=== PATIENT | male | born 1960 | race African-American/Black ===

== ENCOUNTER 2018-03-21 23:58 | Inpatient (IN) | payer BC ==
[~2018-03-21] VITALS: Ht 180.3 cm; Wt 117.7 kg
[2018-03-22 02:10] VITALS: BP 146/84
[2018-03-22] MEDS ORDERED: HYDROCHLOROTH12.5 M2 ORAL (03:21)
[2018-03-22 04:00] VITALS: BP 134/74
[2018-03-22] MEDS ORDERED: Miralax 17gm pkt ORAL PRN (07:45)
[2018-03-22] MEDS ORDERED: Acetaminophen 650 MG SUPP RECTAL PRN ×2 (07:45)
[2018-03-22 08:00] VITALS: BP 137/91
[2018-03-22] MEDS: Heparin 5000 units/ml inj SUBQ SCH ×2 (08:26→20:30)
[2018-03-22] MEDS ORDERED: D5 1/2NS w/KCl 20mEq 1,000 ML IV SCH (09:00)
[2018-03-22] MEDS ORDERED: Docusate 100mg cap ORAL SCH (09:00)
[2018-03-22 10:15] LABS: ANION GAP 15 mmol/L (5-15); BLOOD UREA NITROGEN 58 mg/dL (7-18); CALCIUM 8.2 MG/DL (8.5-10.1); CARBON DIOXIDE 20 MMOL/L (21-32); CHLORIDE 93 MMOL/L (98-107); CREATININE 6.8 MG/DL (0.55-1.30); POTASSIUM 2.8 MMOL/L (3.5-5.1); SODIUM 128 MMOL/L (136-145)
[2018-03-22 10:32] LABS: PHOSPHORUS 3.6 MG/DL (2.5-4.9)
--- NOTE | 2018-03-22 11:49 | Consultation ---
Consult Note Consult Note 57 cc Weakness and decrease Urination Has not seen MD for years Known HTN , never care to treat. Denies DM no allergy no Surgery no OTC meds interviewed examined lab reviewed Assessment/Plan Acute Renal Failure DM as Hgb A1c Elevated Obesity HTN abnormal LFTs ? Fatty infilt Brady- check residual Kidney ROWAN 2D Echo Urine studies Hydrate Keep BP and BS in check starlix Flomax Hepatitis panel BRENNAN ASENCIO Mar 22, 2018 11:48
--- NOTE | 2018-03-22 11:56 | Consultation ---
History of Present Illness General Date patient seen: Mar 22, 2018 Reason for Consultation: inpatient management Present Illness HPI 57 years old male with past medical history significant for hypertension , hyperlipidemia and obesity ,was transferred initially to [facility] complaining of fatigue and anorexia and found to be in acute renal failure. Pt is transferred to [facility] for further care. Allergies: Coded Allergies: No Known Allergies (Unverified , 03/22/18) Medication History Scheduled Amlodipine Besylate (Norvasc), 10 MG ORAL DAILY, (Reported) Hydrochlorothiazide* (Hydrochlorothiazide*), 12.5 MG ORAL DAILY, (Reported) Levofloxacin* (Levaquin*), 750 MG ORAL q48, (Reported) Nateglinide (Starlix), 120 MG ORAL THREE TIMES A DAY, (Reported) Tamsulosin Hcl (Tamsulosin Hcl*), 0.4 MG ORAL BEDTIME, (Reported) Patient History Healthcare decision maker Resuscitation status Full Code Advanced Directive on File Past Medical/Surgical History Past Medical/Surgical History: (1) Diabetes (2) Cardiomyopathy due to hypertension (3) Hypertension Review of Systems All Other Systems: negative except mentioned in HPI Physical Exam General Appearance: WD/WN, no apparent distress Lines, tubes and drains: peripheral HEENT: normocephalic, atraumatic Neck: non-tender, supple Respiratory/Chest: chest wall non-tender, lungs clear Breasts: no masses Cardiovascular/Chest: normal peripheral pulses Abdomen: normal bowel sounds Genitourinary/Rectal: normal genital exam Extremities: normal range of motion Last 24 Hour Vital Signs Date Time Temp Pulse Resp B/P (MAP) Pulse Ox O2 Delivery O2 Flow Rate FiO2 03/22/18 08:23 79 134/74 03/22/18 08:00 98.1 86 20 137/91 96 Room Air 98.1 03/22/18 04:00 99.3 79 20 134/74 96 Room Air 99.3 03/22/18 02:10 99.3 91 18 146/84 97 Room Air 99.3 Intake and Output 03/21/18 03/22/18 19:00 07:00 Intake Total 200 ml Balance 200 ml Intake Oral 200 ml # Bowel Movements 6 Laboratory Tests Test 03/22/18 09:26 Sodium Level 128 MMOL/L (136-145) L Potassium Level 2.8 MMOL/L (3.5-5.1) L Chloride Level 93 MMOL/L (98-107) L Carbon Dioxide Level 20 MMOL/L (21-32) L Anion Gap 15 mmol/L (5-15) Blood Urea Nitrogen 58 mg/dL (7-18) H Creatinine 6.8 MG/DL (0.55-1.30) H Estimat Glomerular Filtration Rate 10.2 mL/min (>60) Glucose Level 169 MG/DL (74-106) H Hemoglobin A1c 7.4 % (4.3-6.0) H Uric Acid 11.8 MG/DL (2.6-7.2) H Calcium Level 8.2 MG/DL (8.5-10.1) L Phosphorus Level 3.6 MG/DL (2.5-4.9) Magnesium Level 2.6 MG/DL (1.8-2.4) H C-Reactive Protein, Quantitative Pending Height (Feet): 5 Height (Inches): 11.00 Weight (Pounds): 259 Medications Current Medications Medications (Trade) Dose Ordered Sig/Swetha Route PRN Reason Start Time Stop Time Status Last Admin Dose Admin Acetaminophen (Tylenol) 650 mg Q4H PRN ORAL Mild Pain (Pain Scale 1-3) 03/22/18 07:45 04/21/18 07:44 Amlodipine Besylate (Norvasc) 5 mg DAILY ORAL 03/23/18 09:00 04/21/18 08:59 Clonidine HCl (Catapres Tab) 0.1 mg Q4H PRN ORAL SBP > 165 03/22/18 15:45 04/21/18 07:44 Dextrose (Dextrose 50%) 25 ml STAT PRN IV Hypoglycemia 03/22/18 07:45 04/21/18 07:44 Docusate Sodium (Colace) 100 mg TID ORAL 03/22/18 13:00 04/21/18 08:59 Heparin Sodium (Porcine) (Heparin 5000 units/ml) 5,000 units EVERY 12 HOURS SUBQ 03/22/18 09:00 04/21/18 08:59 03/22/18 08:26 Ondansetron HCl (Zofran) 4 mg Q6H PRN IVP Nausea & Vomiting 03/22/18 07:45 04/21/18 07:44 Polyethylene Glycol (Miralax) 17 gm HSPRN PRN ORAL Constipation 03/22/18 07:45 04/21/18 07:44 Potassium Chloride (K-Dur) 40 meq ONCE ORAL 03/22/18 11:00 03/22/18 12:00 Sodium Chloride 1,000 ml @ 75 mls/hr [id number] IV 03/22/18 11:45 04/21/18 11:44 Tamsulosin HCl (Flomax) 0.4 mg BEDTIME ORAL 03/22/18 21:00 04/21/18 20:59 Assessment/Plan Problem List: (1) Acute renal failure (ARF) ICD Codes: N17.9 - Acute kidney failure, unspecified SNOMED: 06932624 (2) Cardiomyopathy due to hypertension ICD Codes: I11.9 - Hypertensive heart disease without heart failure; I43 - Cardiomyopathy in diseases classified elsewhere SNOMED: 890696907821136 (3) Obesity (BMI 30-39.9) ICD Codes: E66.9 - Obesity, unspecified SNOMED: 515424390, 912332490 (4) Diabetes type 2, uncontrolled ICD Codes: E11.65 - Type 2 diabetes mellitus with hyperglycemia SNOMED: 99640999, 405672471 (5) Hypertension ICD Codes: I10 - Essential (primary) hypertension SNOMED: 22954868 Assessment/Plan iv fluids renal US urine electrolytes daily blood electrolytes echocardiogram monitor BP nutrition evaluation symptomatic treatment. dvt prophylaxis. Ethan Barnett MD Mar 22, 2018 11:56
[2018-03-22 12:00] VITALS: BP 156/88
[2018-03-22] MEDS ORDERED: NS w/KCl 40mEq 1,000 ML IV SCH (12:00)
[2018-03-22] MEDS: Docusate 100mg cap ORAL SCH ×2 (12:27→17:10)
[2018-03-22 12:47] LABS: BASOPHILS % (AUTO) 0.3 % (0.0-2.0); EOSINOPHILS % (AUTO) 0.6 % (0.0-3.0); HEMOGLOBIN 12.6 G/DL (14.2-18.0); LYMPHOCYTES % (AUTO) 10.5 % (20.0-45.0); MEAN CORPUSCULAR VOLUME 89 FL (80-99); MONOCYTES % (AUTO) 5.2 % (1.0-10.0); NEUTROPHILS % (AUTO) 83.4 % (45.0-75.0); PLATELET COUNT 229 K/UL (150-450); RED BLOOD COUNT 4.17 M/UL (4.70-6.10); WHITE BLOOD COUNT 13.6 K/UL (4.8-10.8)
[2018-03-22 13:21] LABS: ALANINE AMINOTRANSFERASE 149 U/L (12-78); ALBUMIN 2.2 G/DL (3.4-5.0); ALBUMIN/GLOBULIN RATIO 0.4 (1.0-2.7); ALKALINE PHOSPHATASE 119 U/L (46-116); ANION GAP 13 mmol/L (5-15); ASPARTATE AMINO TRANSFERASE 88 U/L (15-37); BILIRUBIN,TOTAL 0.4 MG/DL (0.2-1.0); BLOOD UREA NITROGEN 61 mg/dL (7-18); CARBON DIOXIDE 21 MMOL/L (21-32); CHLORIDE 93 MMOL/L (98-107); CREATINE KINASE 606 U/L (26-308); POTASSIUM 2.8 MMOL/L (3.5-5.1); SODIUM 127 MMOL/L (136-145)
--- NOTE | 2018-03-22 13:28 | History & Physical ---
History and Physical History & Physicial Dictated for Int Med-Dr Orozco no. [id number]. Yunior Zayas MD Mar 22, 2018 13:28
[2018-03-22 13:58] LABS: APPEARANCE,URINE SLIGHTLY CLOUDY; BILIRUBIN, URINE NEGATIVE (NEGATIVE); GLUCOSE, URINE (UA) 1+ (NEGATIVE); KETONES,URINE NEGATIVE (NEGATIVE); LEUKOCYTE ESTERASE ,URINE 1+ (NEGATIVE); NITRITE,URINE NEGATIVE (NEGATIVE); PH,URINE 5 (4.5-8.0); PROTEIN,URINE 4+ (NEGATIVE); UROBILINOGEN,URINE NORMAL MG/DL (0.0-1.0)
[2018-03-22 14:07] LABS: COLOR,URINE YELLOW
[2018-03-22 15:53] VITALS: BP 146/92
[2018-03-22] MEDS: Nateglinide 60mg tab ORAL SCH (17:10)
--- NOTE | 2018-03-22 17:30 | History and Physical Report ---
DATE OF ADMISSION: 03/22/2018 CHIEF COMPLAINT: The patient is a 57-year-old male, presents with a chief complaint of renal failure. HISTORY OF PRESENT ILLNESS: The patient has a history of hypertension and hypercholesterolemia. The patient himself is somewhat confused. Much of the history and physical was obtained from the patient's partner who is at the bedside. According the patient's partner, the patient began to have increasing fatigue over the last week. The patient also has not been able to eat. The patient's partner states the patient did not taste good to him. The patient initially had increased frequency of urination, however, has not produce urine the last couple of days. The patient presented to urgent care a couple of days ago. The patient was told he had abnormal labs. The patient was told to go to the emergency room. The patient presented initially to [facility] emergency room. The patient was found to be in acute renal failure. The patient is transferred to [facility] for insurance purposes. The patient is admitted with acute renal failure and uncontrolled hypertension. REVIEW OF SYSTEMS: CONSTITUTIONAL: The patient denies weight loss weight gain. The patient complains of subjective fevers and chills. HEENT: The patient denies ear or throat pain. The patient denies headache. CARDIOVASCULAR: The patient denies palpitations or chest pain. CHEST: The patient denies wheeze or shortness of breath. ABDOMINAL: The patient denies nausea, vomiting, diarrhea, or constipation. GENITOURINARY: The patient complains of increased frequency of urination as above. The patient also complains of decreased urination as above. The patient denies dysuria. NEUROMUSCULAR: The patient complains of generalized weakness. The patient denies seizures. PAST MEDICAL HISTORY: Significant for, 1. Hypertension. 2. Hypercholesterolemia. PAST SURGICAL HISTORY: The patient denies. CURRENT MEDICATIONS: The patient denies medications in the last 3 years. ALLERGIES: No known drug allergies. SOCIAL HISTORY: The patient has a long-term partner who is at the bedside. The patient admits to "heavy" alcohol use. The patient denies tobacco use. 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 PHYSICAL EXAMINATION: VITAL SIGNS: Temperature 98.1, respirations 18, pulse 91 blood pressure 146/84. GENERAL: The patient is a well-developed, well-nourished, male, in no apparent distress. HEENT: Pupils are equal and responsive to light and accommodation. Extraocular movements are intact. NECK: Supple without lymphadenopathy. CHEST: Lungs are clear to auscultation bilaterally without wheezes or rales. CARDIOVASCULAR: Regular rhythm rate. S1 and S2 are normal without murmurs, rubs, or gallops. ABDOMEN: Soft, nontender, nondistended. Positive bowel sounds. No evidence of hepatosplenomegaly. Currently, no rebound or guarding noted. EXTREMITIES: Negative for clubbing, cyanosis, or edema. RECTAL/GENITAL: Refused. NEUROLOGIC: Cranial nerves II through XII are grossly intact without focal deficits. Motor strength is 5/5 bilaterally. Deep tendon reflexes are 2+ plantar. LABORATORY STUDIES: From [place], WBC 16.5 hemoglobin 12.8, hematocrit 37.0, platelets 189,000. Sodium 129, potassium 2.9, chloride 92, CO2 23, BUN 43, creatinine 5.3, glucose 146. AST elevated at 118, ALT elevated at 144 alkaline phosphatase is normal at 114. ASSESSMENT: This is a 57-year-old male. 1. Fatigue. 2. Anorexia. 3. Acute renal failure. 4. Uncontrolled hypertension. 5. Hypercholesterolemia. TREATMENT: 1. Acute renal failure. A Nephrology consultation has been obtained with Dr. Zaragoza. The patient is currently receiving intravenous fluids. The differential includes dehydration versus acute renal failure secondary to uncontrolled hypertension. We will follow recommendations of Nephrology. 2. Fatigue/anorexia is probably secondary to acute renal failure. 3. Uncontrolled hypertension. The patient has been started empirically on p.r.n. clonidine. The patient also has been started on amlodipine. A Cardiology consultation has been obtained with Dr. Singer. We will follow recommendation of Cardiology. 4. Hypercholesterolemia. Yunior Zayas M.D. DR: TIM JOB#: [id number] CC:
[2018-03-22 20:01] VITALS: BP 121/76
[2018-03-22] MEDS: Tamsulosin 0.4mg cap ORAL SCH (20:29)
[2018-03-23] VITALS (13 sets, daily range): BP systolic 109–165; BP diastolic 66–93
[2018-03-23] MEDS: Nateglinide 60mg tab ORAL SCH ×3 (06:07→16:50)
[2018-03-23 06:28] LABS: BASOPHILS % (AUTO) 0.3 % (0.0-2.0); EOSINOPHILS % (AUTO) 0.9 % (0.0-3.0); HEMATOCRIT 35.4 % (42.0-52.0); HEMOGLOBIN 12.3 G/DL (14.2-18.0); MEAN CORPUSCULAR VOLUME 89 FL (80-99); MONOCYTES % (AUTO) 5.3 % (1.0-10.0); NEUTROPHILS % (AUTO) 81.5 % (45.0-75.0); PLATELET COUNT 238 K/UL (150-450); RED BLOOD COUNT 3.97 M/UL (4.70-6.10); WHITE BLOOD COUNT 14.9 K/UL (4.8-10.8)
[2018-03-23 06:46] LABS: ALANINE AMINOTRANSFERASE 131 U/L (12-78); ALBUMIN 2.1 G/DL (3.4-5.0); ALBUMIN/GLOBULIN RATIO 0.4 (1.0-2.7); ALKALINE PHOSPHATASE 108 U/L (46-116); ANION GAP 14 mmol/L (5-15); ASPARTATE AMINO TRANSFERASE 65 U/L (15-37); BILIRUBIN,TOTAL 0.5 MG/DL (0.2-1.0); BLOOD UREA NITROGEN 72 mg/dL (7-18); CALCIUM 8.3 MG/DL (8.5-10.1); CARBON DIOXIDE 19 MMOL/L (21-32); CHLORIDE 96 MMOL/L (98-107); CHOLESTEROL 393 MG/DL (< 200); CREATININE 7.5 MG/DL (0.55-1.30); HDL CHOLESTEROL 12 MG/DL (40-60); PHOSPHORUS 4.7 MG/DL (2.5-4.9); POTASSIUM 3.2 MMOL/L (3.5-5.1); SODIUM 129 MMOL/L (136-145); TRIGLYCERIDES 525 MG/DL (30-150)
[2018-03-23 07:05] LABS: % IRON SATURATION 32 % (15-50); IRON 42 ug/dL (50-175); TOTAL IRON BINDING CAPACITY 133 ug/dL (250-450)
[2018-03-23 07:18] LABS: FERRITIN > 2000 NG/ML (8-388)
[2018-03-23 07:41] LABS: CREATINE KINASE 320 U/L (26-308); GAMMA GLUTAMYL TRANSPEPTIDASE 122 U/L (5-85)
[2018-03-23] MEDS: Heparin 5000 units/ml inj SUBQ SCH ×4 (09:00→20:45)
[2018-03-23] MEDS: Docusate 100mg cap ORAL SCH ×3 (09:40→17:49)
--- NOTE | 2018-03-23 11:52 | Consultation ---
History of Present Illness General Date patient seen: Mar 23, 2018 Time patient seen: 11:45 Chief Complaint: abnormal labs, AMS, decreased urination, hypertension Present Illness HPI 57 year old male with HTN HLD admitted for LEATHA, no recent MD evaluation, mild AMS, confusion, decreased appetite, transferred from [place], was seen at urgent care and told to go to ER for abnormal labs, found to have elevated creatinine, abnormal electrolytes, uncontrolled DM and hypertension, no medications. Allergies: Coded Allergies: No Known Allergies (Unverified , 03/22/18) Medication History Scheduled Hydrochlorothiazide* (Hydrochlorothiazide*), 12.5 MG ORAL DAILY, (Reported) Patient History Healthcare decision maker Resuscitation status Full Code Advanced Directive on File Review of Systems Constitutional: Reports: weakness Eye: Reports: no symptoms ENT: Reports: no symptoms Respiratory: Reports: no symptoms Cardiovascular: Reports: no symptoms Gastrointestinal: Reports: no symptoms Genitourinary: Reports: retention Musculoskeletal: Reports: no symptoms Skin: Reports: no symptoms Psychiatric: Reports: no symptoms Neurological: Reports: no symptoms Endocrine: Reports: no symptoms Physical Exam General Appearance: no apparent distress Lines, tubes and drains: peripheral HEENT: normocephalic Neck: non-tender Respiratory/Chest: chest wall non-tender Cardiovascular/Chest: normal peripheral pulses Abdomen: normal bowel sounds Extremities: normal range of motion Skin Exam: normal pigmentation Neurologic: flush tester II-XII grossly normal Last 24 Hour Vital Signs Date Time Temp Pulse Resp B/P (MAP) Pulse Ox O2 Delivery O2 Flow Rate FiO2 03/23/18 09:40 83 165/93 03/23/18 09:40 165/93 03/23/18 08:10 97.0 83 20 165/93 96 97.0 03/23/18 04:00 97.9 81 18 139/80 97 Room Air 97.9 03/23/18 00:45 98.1 80 20 109/73 97 Room Air 98.1 03/22/18 20:01 97.9 81 20 121/76 93 Room Air 97.9 03/22/18 17:10 84 146/92 03/22/18 15:53 98.0 84 18 146/92 93 Room Air 98.0 03/22/18 12:00 97.2 84 20 156/88 94 Room Air 97.2 Intake and Output 03/22/18 03/23/18 19:00 07:00 Intake Total 715 ml 1550 ml Output Total 400 ml 1500 ml Balance 315 ml 50 ml Intake Oral 240 ml 350 ml IV Total 475 ml 1200 ml Output Urine Total 400 ml 1500 ml # Bowel Movements 1 Laboratory Tests Test 03/22/18 12:23 03/22/18 13:00 03/23/18 04:00 03/23/18 05:40 White Blood Count 13.6 K/UL (4.8-10.8) H 14.9 K/UL (4.8-10.8) H Red Blood Count 4.17 M/UL (4.70-6.10) L 3.97 M/UL (4.70-6.10) L Hemoglobin 12.6 G/DL (14.2-18.0) L 12.3 G/DL (14.2-18.0) L Hematocrit 37.0 % (42.0-52.0) L 35.4 % (42.0-52.0) L Mean Corpuscular Volume 89 FL (80-99) 89 FL (80-99) Mean Corpuscular Hemoglobin 30.3 PG (27.0-31.0) 30.9 PG (27.0-31.0) Mean Corpuscular Hemoglobin Concent 34.2 G/DL (32.0-36.0) 34.6 G/DL (32.0-36.0) Red Cell Distribution Width 12.0 % (11.6-14.8) 12.0 % (11.6-14.8) Platelet Count 229 K/UL (150-450) 238 K/UL (150-450) Mean Platelet Volume 8.9 FL (6.5-10.1) 9.0 FL (6.5-10.1) Neutrophils (%) (Auto) 83.4 % (45.0-75.0) H 81.5 % (45.0-75.0) H Lymphocytes (%) (Auto) 10.5 % (20.0-45.0) L 12.0 % (20.0-45.0) L Monocytes (%) (Auto) 5.2 % (1.0-10.0) 5.3 % (1.0-10.0) Eosinophils (%) (Auto) 0.6 % (0.0-3.0) 0.9 % (0.0-3.0) Basophils (%) (Auto) 0.3 % (0.0-2.0) 0.3 % (0.0-2.0) Sodium Level 127 MMOL/L (136-145) L 129 MMOL/L (136-145) L Potassium Level 2.8 MMOL/L (3.5-5.1) L 3.2 MMOL/L (3.5-5.1) L Chloride Level 93 MMOL/L (98-107) L 96 MMOL/L (98-107) L Carbon Dioxide Level 21 MMOL/L (21-32) 19 MMOL/L (21-32) L Anion Gap 13 mmol/L (5-15) 14 mmol/L (5-15) Blood Urea Nitrogen 61 mg/dL (7-18) H 72 mg/dL (7-18) H Creatinine 7.0 MG/DL (0.55-1.30) H 7.5 MG/DL (0.55-1.30) H Estimat Glomerular Filtration Rate 9.8 mL/min (>60) 9.1 mL/min (>60) Glucose Level 217 MG/DL (74-106) H 148 MG/DL (74-106) H Calcium Level 8.0 MG/DL (8.5-10.1) L 8.3 MG/DL (8.5-10.1) L Total Bilirubin 0.4 MG/DL (0.2-1.0) 0.5 MG/DL (0.2-1.0) Aspartate Amino Transf (AST/SGOT) 88 U/L (15-37) H 65 U/L (15-37) H Alanine Aminotransferase (ALT/SGPT) 149 U/L (12-78) H 131 U/L (12-78) H Alkaline Phosphatase 119 U/L (46-116) H 108 U/L (46-116) Total Creatine Kinase 606 U/L (26-308) H 320 U/L (26-308) H Total Protein 7.1 G/DL (6.4-8.2) 7.0 G/DL (6.4-8.2) Albumin 2.2 G/DL (3.4-5.0) L 2.1 G/DL (3.4-5.0) L Globulin 4.9 g/dL 4.9 g/dL Albumin/Globulin Ratio 0.4 (1.0-2.7) L 0.4 (1.0-2.7) L Urine Color Yellow Urine Appearance Slightly cloudy Urine pH 5 (4.5-8.0) Urine Specific [place] 1.010 (1.005-1.035) Urine Protein 4+ (NEGATIVE) H Urine Glucose (UA) 1+ (NEGATIVE) H Urine Ketones Negative (NEGATIVE) Urine Occult Blood 5+ (NEGATIVE) H Urine Nitrite Negative (NEGATIVE) Urine Bilirubin Negative (NEGATIVE) Urine Urobilinogen Normal MG/DL (0.0-1.0) Urine Leukocyte Esterase 1+ (NEGATIVE) H Urine RBC 5-10 /HPF (0 - 0) H Urine WBC 2-4 /HPF (0 - 0) Urine Squamous Epithelial Cells Occasional /LPF Urine Amorphous Sediment Moderate /LPF (NONE) H Urine Bacteria Occasional /HPF (NONE) Urine Eosinophils None seen None seen Urine Random Sodium 57 mmol/L (20-110) Urine Opiates Screen Negative (NEGATIVE) Urine Barbiturates Screen Negative (NEGATIVE) Phencyclidine (PCP) Screen Negative (NEGATIVE) Urine Amphetamines Screen Negative (NEGATIVE) Urine Benzodiazepines Screen Negative (NEGATIVE) Urine Cocaine Screen Negative (NEGATIVE) Urine Marijuana (THC) Screen Negative (NEGATIVE) Prothrombin Time 10.2 SEC (9.30-11.50) Prothromb Time International Ratio 1.0 (0.9-1.1) Activated Partial Thromboplast Time 32 SEC (23-33) Uric Acid 12.2 MG/DL (2.6-7.2) H Phosphorus Level 4.7 MG/DL (2.5-4.9) Magnesium Level 2.6 MG/DL (1.8-2.4) H Iron Level 42 ug/dL (50-175) L Total Iron Binding Capacity 133 ug/dL (250-450) L Percent Iron Saturation 32 % (15-50) Unsaturated Iron Binding 91 ug/dL (112-346) L Ferritin > 2000 NG/ML (8-388) H Gamma Glutamyl Transpeptidase 122 U/L (5-85) H Pro-B-Type Natriuretic Peptide 106 pg/mL (0-125) Triglycerides Level 525 MG/DL (30-150) H Cholesterol Level 393 MG/DL (< 200) H LDL Cholesterol 296 mg/dL (<100) H HDL Cholesterol 12 MG/DL (40-60) L Cholesterol/HDL Ratio 32.8 (3.3-4.4) H Vitamin B12 Level > 2000 PG/ML (193-986) H Folate 17.6 NG/ML (8.6-58.9) Thyroid Stimulating Hormone (TSH) 1.103 uiU/mL (0.358-3.740) Hepatitis B Surface Antigen Pending Hepatitis B Surface Antibody, Quant Pending Hepatitis C Antibody Pending Height (Feet): 5 Height (Inches): 11.00 Weight (Pounds): 259 Medications Current Medications Medications (Trade) Dose Ordered Sig/Swetha Route PRN Reason Start Time Stop Time Status Last Admin Dose Admin Acetaminophen (Tylenol) 650 mg Q4H PRN ORAL Mild Pain (Pain Scale 1-3) 03/22/18 07:45 04/21/18 07:44 Allopurinol (Allopurinol) 300 mg ONCE ORAL 03/23/18 11:45 03/23/18 12:45 Amlodipine Besylate (Norvasc) 5 mg BID ORAL 03/22/18 18:00 04/21/18 08:59 03/23/18 09:40 Clonidine HCl (Catapres Tab) 0.1 mg Q4H PRN ORAL SBP > 165 03/22/18 15:45 04/21/18 07:44 03/23/18 09:40 Dextrose (Dextrose 50%) 25 ml STAT PRN IV Hypoglycemia 03/22/18 07:45 04/21/18 07:44 Docusate Sodium (Colace) 100 mg TID ORAL 03/22/18 13:00 04/21/18 08:59 03/23/18 09:40 Heparin Sodium (Porcine) (Heparin 5000 units/ml) 5,000 units EVERY 12 HOURS SUBQ 03/22/18 09:00 04/21/18 08:59 03/22/18 20:30 Lansoprazole (Prevacid) 30 mg DAILY ORAL 03/23/18 09:00 04/22/18 08:59 03/23/18 09:40 Nateglinide (Starlix) 60 mg TIAC ORAL 03/22/18 16:30 04/21/18 16:29 03/23/18 06:07 Ondansetron HCl (Zofran) 4 mg Q6H PRN IVP Nausea & Vomiting 03/22/18 07:45 04/21/18 07:44 Polyethylene Glycol (Miralax) 17 gm HSPRN PRN ORAL Constipation 03/22/18 07:45 04/21/18 07:44 Sodium Chloride 1,000 ml @ 100 mls/hr Q10H IV 03/22/18 14:15 04/21/18 14:14 03/23/18 00:01 Tamsulosin HCl (Flomax) 0.4 mg BEDTIME ORAL 03/22/18 21:00 04/21/18 20:59 03/22/18 20:29 Assessment/Plan Status: stable Assessment/Plan Acute Renal Failure DM as Hgb A1c Elevated Obesity HTN abnormal LFTs AMS Urinary retention 1) Echocardiogram to evaluate for hypertensive heart disease. 2) Allopurinol for elevated uric acid 3) outpatient ischemia evaluation due to multiple cardiac risk factors 4) Norvasc for hypertension, add clonidine or hydralazine if not controlled 5) Aspirin 6) Lipitor and fish oil 7) Repeat lipid panel in 6 weeks Vijay Singer M.D. Mar 23, 2018 11:52
--- NOTE | 2018-03-23 12:27 | Nephrology Progress Note ---
Assessment/Plan Problem List: (1) Acute renal failure (ARF) (2) Hypertension (3) Diabetes type 2, uncontrolled (4) Elevated lipids (5) Obesity (BMI 30-39.9) Assessment Acute Renal Failure DM as Hgb A1c Elevated Obesity HTN abnormal LFTs ? Fatty infilt High Uric High Cholestrol Plan Brady- Kidney ROWAN Pending 2D Echo noted Urine studies Hydrate Keep BP and BS in check starlix Flomax Hepatitis panel Dialysis - Agreed One dose allopurinol for now Subjective ROS Limited/Unobtainable: No Constitutional: Reports: malaise Objective Objective Last 24 Hour Vital Signs Date Time Temp Pulse Resp B/P (MAP) Pulse Ox O2 Delivery O2 Flow Rate FiO2 03/23/18 09:40 83 165/93 03/23/18 09:40 165/93 03/23/18 08:10 97.0 83 20 165/93 96 97.0 03/23/18 04:00 97.9 81 18 139/80 97 Room Air 97.9 03/23/18 00:45 98.1 80 20 109/73 97 Room Air 98.1 03/22/18 20:01 97.9 81 20 121/76 93 Room Air 97.9 03/22/18 17:10 84 146/92 03/22/18 15:53 98.0 84 18 146/92 93 Room Air 98.0 Intake and Output 03/22/18 03/23/18 19:00 07:00 Intake Total 715 ml 1550 ml Output Total 400 ml 1500 ml Balance 315 ml 50 ml Intake Oral 240 ml 350 ml IV Total 475 ml 1200 ml Output Urine Total 400 ml 1500 ml # Bowel Movements 1 Laboratory Tests 03/22/18 12:23: White Blood Count 13.6H, Red Blood Count 4.17L, Hemoglobin 12.6L, Hematocrit 37.0L, Mean Corpuscular Volume 89, Mean Corpuscular Hemoglobin 30.3, Mean Corpuscular Hemoglobin Concent 34.2, Red Cell Distribution Width 12.0, Platelet Count 229, Mean Platelet Volume 8.9, Neutrophils (%) (Auto) 83.4H, Lymphocytes ( %) (Auto) 10.5L, Monocytes (%) (Auto) 5.2, Eosinophils (%) (Auto) 0.6, Basophils (%) (Auto) 0.3, Sodium Level 127L, Potassium Level 2.8L, Chloride Level 93L, Carbon Dioxide Level 21, Anion Gap 13, Blood Urea Nitrogen 61H, Creatinine 7.0H, Estimat Glomerular Filtration Rate 9.8, Glucose Level 217H, Calcium Level 8.0L, Total Bilirubin 0.4, Aspartate Amino Transf (AST/SGOT) 88H, Alanine Aminotransferase (ALT/SGPT) 149H, Alkaline Phosphatase 119H, Total Creatine Kinase 606H, Total Protein 7.1, Albumin 2.2L, Globulin 4.9, Albumin/ Globulin Ratio 0.4L 03/22/18 13:00: Urine Color Yellow, Urine Appearance Slightly cloudy, Urine pH 5, Urine Specific [place] 1.010, Urine Protein 4+H, Urine Glucose (UA) 1+H, Urine Ketones Negative, Urine Occult Blood 5+H, Urine Nitrite Negative, Urine Bilirubin Negative, Urine Urobilinogen Normal, Urine Leukocyte Esterase 1+H, Urine RBC 5-10H, Urine WBC 2-4, Urine Squamous Epithelial Cells Occasional, Urine Amorphous Sediment ModerateH, Urine Bacteria Occasional, Urine Eosinophils None seen, Urine Random Sodium 57, Urine Opiates Screen Negative, Urine Barbiturates Screen Negative, Phencyclidine (PCP) Screen Negative, Urine Amphetamines Screen Negative, Urine Benzodiazepines Screen Negative, Urine Cocaine Screen Negative, Urine Marijuana (THC) Screen Negative 03/23/18 04:00: Urine Eosinophils None seen 03/23/18 05:40: White Blood Count 14.9H, Red Blood Count 3.97L, Hemoglobin 12.3L, Hematocrit 35.4L, Mean Corpuscular Volume 89, Mean Corpuscular Hemoglobin 30.9, Mean Corpuscular Hemoglobin Concent 34.6, Red Cell Distribution Width 12.0, Platelet Count 238, Mean Platelet Volume 9.0, Neutrophils (%) (Auto) 81.5H, Lymphocytes ( %) (Auto) 12.0L, Monocytes (%) (Auto) 5.3, Eosinophils (%) (Auto) 0.9, Basophils (%) (Auto) 0.3, Sodium Level 129L, Potassium Level 3.2L, Chloride Level 96L, Carbon Dioxide Level 19L, Anion Gap 14, Blood Urea Nitrogen 72H, Creatinine 7.5H, Estimat Glomerular Filtration Rate 9.1, Glucose Level 148H, Calcium Level 8.3L, Total Bilirubin 0.5, Aspartate Amino Transf (AST/SGOT) 65H, Alanine Aminotransferase (ALT/SGPT) 131H, Alkaline Phosphatase 108, Total Creatine Kinase 320H, Total Protein 7.0, Albumin 2.1L, Globulin 4.9, Albumin/ Globulin Ratio 0.4L, Prothrombin Time 10.2, Prothromb Time International Ratio 1.0, Activated Partial Thromboplast Time 32, Uric Acid 12.2H, Phosphorus Level 4.7, Magnesium Level 2.6H, Iron Level 42L, Total Iron Binding Capacity 133L, Percent Iron Saturation 32, Unsaturated Iron Binding 91L, Ferritin > 2000H, Gamma Glutamyl Transpeptidase 122H, Pro-B-Type Natriuretic Peptide 106, Triglycerides Level 525H, Cholesterol Level 393H, LDL Cholesterol 296H, HDL Cholesterol 12L, Cholesterol/HDL Ratio 32.8H, Vitamin B12 Level > 2000H, Folate 17.6, Thyroid Stimulating Hormone (TSH) 1.103, Hepatitis B Surface Antigen [ Pending], Hepatitis B Surface Antibody, Quant [Pending], Hepatitis C Antibody [ Pending] Height (Feet): 5 Height (Inches): 11.00 Weight (Pounds): 259 General Appearance: no apparent distress Cardiovascular: regular rhythm Respiratory/Chest: decreased breath sounds Abdomen: other - obese Genitourinary/Rectal: other - latrice+ BRENNAN ASENCIO Mar 23, 2018 12:27
--- NOTE | 2018-03-23 12:34 | Diagnostic Imaging Report ---
Indication: Abnormal renal function Technique: US Renal Comp Comparison: None Findings: The kidney measures 14.8 cm in length. Left kidney measures 12.7 cm in length. Kidneys demonstrate normal echogenicity. There is no hydronephrosis bilaterally. A calcification is noted in the right renal hilum which may represent a mesenteric calcification or a nonobstructive stone. A 1.5 cm simple appearing cyst is noted in the right kidney. A 2.7 cm simple appearing cyst is noted in the left kidney. Brady catheter decompresses the bladder, limiting its evaluation. Impression: * Normal renal echogenicity bilaterally. * Punctate calcification in the right renal pelvis may represent renal sinus fat, vascular calcification or nonobstructing stone. No evidence of hydronephrosis bilaterally. * Simple appearing renal cysts. * Brady catheter decompresses the bladder, limiting its evaluation.
[2018-03-23] MEDS ORDERED: Heparin 2000 units/Ns 1000ml INJ PRN (13:30)
[2018-03-23] MEDS ORDERED: Heparin Sod 1000 units/ml 10ml INJ PRN (13:30)
[2018-03-23] MEDS ORDERED: Lidocaine 1% Plain 30 ml INJ PRN (13:30)
--- NOTE | 2018-03-23 14:14 | Pulmonology Progress Note ---
Assessment/Plan Problems: (1) Cardiomyopathy due to hypertension (2) Anorexia (3) Diabetes type 2, uncontrolled (4) Acute renal failure (ARF) Assessment/Plan HD by nephrology sliding scale Endo consult called check electrolytes Subjective ROS Limited/Unobtainable: No Allergies: Coded Allergies: No Known Allergies (Unverified , 03/22/18) Objective Last 24 Hour Vital Signs Date Time Temp Pulse Resp B/P (MAP) Pulse Ox O2 Delivery O2 Flow Rate FiO2 03/23/18 13:47 75 17 03/23/18 12:00 97.8 76 20 143/78 97 Room Air 97.8 03/23/18 09:40 83 165/93 03/23/18 09:40 165/93 03/23/18 08:10 97.0 83 20 165/93 96 97.0 03/23/18 04:00 97.9 81 18 139/80 97 Room Air 97.9 03/23/18 00:45 98.1 80 20 109/73 97 Room Air 98.1 03/22/18 20:01 97.9 81 20 121/76 93 Room Air 97.9 03/22/18 17:10 84 146/92 03/22/18 15:53 98.0 84 18 146/92 93 Room Air 98.0 Intake and Output 03/22/18 03/23/18 19:00 07:00 Intake Total 715 ml 1550 ml Output Total 400 ml 1500 ml Balance 315 ml 50 ml Intake Oral 240 ml 350 ml IV Total 475 ml 1200 ml Output Urine Total 400 ml 1500 ml # Bowel Movements 1 Objective General Appearance: WD/WN HEENT: normocephalic, atraumatic Respiratory/Chest: chest wall non-tender, lungs clear Breasts: no masses Cardiovascular: normal peripheral pulses, normal rate Abdomen: normal bowel sounds, no organomegaly 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 Lymphatic: no neck adenopathy Laboratory Tests 03/23/18 04:00: Urine Eosinophils None seen 03/23/18 05:40: White Blood Count 14.9H, Red Blood Count 3.97L, Hemoglobin 12.3L, Hematocrit 35.4L, Mean Corpuscular Volume 89, Mean Corpuscular Hemoglobin 30.9, Mean Corpuscular Hemoglobin Concent 34.6, Red Cell Distribution Width 12.0, Platelet Count 238, Mean Platelet Volume 9.0, Neutrophils (%) (Auto) 81.5H, Lymphocytes ( %) (Auto) 12.0L, Monocytes (%) (Auto) 5.3, Eosinophils (%) (Auto) 0.9, Basophils (%) (Auto) 0.3, Prothrombin Time 10.2, Prothromb Time International Ratio 1.0, Activated Partial Thromboplast Time 32, Sodium Level 129L, Potassium Level 3.2L, Chloride Level 96L, Carbon Dioxide Level 19L, Anion Gap 14, Blood Urea Nitrogen 72H, Creatinine 7.5H, Estimat Glomerular Filtration Rate 9.1, Glucose Level 148H, Uric Acid 12.2H, Calcium Level 8.3L, Phosphorus Level 4.7, Magnesium Level 2.6H, Iron Level 42L, Total Iron Binding Capacity 133L, Percent Iron Saturation 32, Unsaturated Iron Binding 91L, Ferritin > 2000H, Total Bilirubin 0.5, Gamma Glutamyl Transpeptidase 122H, Aspartate Amino Transf (AST/ SGOT) 65H, Alanine Aminotransferase (ALT/SGPT) 131H, Alkaline Phosphatase 108, Total Creatine Kinase 320H, Pro-B-Type Natriuretic Peptide 106, Total Protein 7.0, Albumin 2.1L, Globulin 4.9, Albumin/Globulin Ratio 0.4L, Triglycerides Level 525H, Cholesterol Level 393H, LDL Cholesterol 296H, HDL Cholesterol 12L, Cholesterol/HDL Ratio 32.8H, Vitamin B12 Level > 2000H, Folate 17.6, Thyroid Stimulating Hormone (TSH) 1.103, Hepatitis B Surface Antigen [Pending], Hepatitis B Surface Antibody, Quant [Pending], Hepatitis C Antibody [Pending] Current Medications Medications (Trade) Dose Ordered Sig/Swetha Route PRN Reason Start Time Stop Time Status Last Admin Dose Admin Acetaminophen (Tylenol) 650 mg Q4H PRN ORAL Mild Pain (Pain Scale 1-3) 03/22/18 07:45 04/21/18 07:44 Amlodipine Besylate (Norvasc) 5 mg BID ORAL 03/22/18 18:00 04/21/18 08:59 03/23/18 09:40 Aspirin (ASA) 325 mg DAILY ORAL 03/24/18 09:00 04/23/18 08:59 Atorvastatin Calcium (Lipitor) 80 mg BEDTIME ORAL 03/23/18 21:00 04/22/18 20:59 Clonidine HCl (Catapres Tab) 0.1 mg Q4H PRN ORAL SBP > 165 03/22/18 15:45 04/21/18 07:44 03/23/18 09:40 Dextrose (Dextrose 50%) 25 ml STAT PRN IV Hypoglycemia 03/22/18 07:45 04/21/18 07:44 Docusate Sodium (Colace) 100 mg TID ORAL 03/22/18 13:00 04/21/18 08:59 03/23/18 13:00 Fish Oil (Fish Oil) 1,000 mg BEFORE BREAKFAST ORAL 03/24/18 06:30 04/23/18 06:29 Heparin Sodium (Porcine) (Heparin 5000 units/ml) 5,000 units EVERY 12 HOURS SUBQ 03/22/18 09:00 04/21/18 08:59 03/22/18 20:30 Heparin Sodium (Porcine) (Heparin Sod 1000 units/ml 10ml) 2,000 unit ONCE PRN INJ FOR USE IN RADIOLOGY 03/23/18 13:30 03/23/18 23:59 Heparin Sodium/ Sodium Chloride (Heparin 2000 units/Ns 1000ml premix) 2,000 unit ONCE PRN INJ FOR USE IN RADIOLOGY 03/23/18 13:30 03/23/18 23:59 Lansoprazole (Prevacid) 30 mg DAILY ORAL 03/23/18 09:00 04/22/18 08:59 03/23/18 09:40 Lidocaine HCl (Xylocaine 1% 30ml) 30 ml ONCE PRN INJ FOR USE IN RADIOLOGY 03/23/18 13:30 03/23/18 23:59 Nateglinide (Starlix) 60 mg TIAC ORAL 03/22/18 16:30 04/21/18 16:29 03/23/18 11:52 Ondansetron HCl (Zofran) 4 mg Q6H PRN IVP Nausea & Vomiting 03/22/18 07:45 04/21/18 07:44 Polyethylene Glycol (Miralax) 17 gm HSPRN PRN ORAL Constipation 03/22/18 07:45 04/21/18 07:44 Sodium Chloride 1,000 ml @ 100 mls/hr Q10H IV 03/22/18 14:15 04/21/18 14:14 03/23/18 00:01 Tamsulosin HCl (Flomax) 0.4 mg BEDTIME ORAL 03/22/18 21:00 04/21/18 20:59 03/22/18 20:29 Ethan Barnett MD Mar 23, 2018 14:14
--- NOTE | 2018-03-23 14:23 | Pre-Procedure Note/Attestation ---
Pre-Procedure Note/Attestation Complete Prior to Procedure Planned Procedure: not applicable Procedure Narrative: Non-tunneled dialysis catheter placement Indications for Procedure Pre-Operative Diagnosis: renal insufficiency Attestation I attest that I discussed the nature of the procedure; its benefits; risks and complications; and alternatives (and the risks and benefits of such alternatives ), prior to the procedure, with the patient (or the patient's legal circulation sales representative). I attest that, if there was a reasonable possibility of needing a blood transfusion, the patient (or the patient's legal circulation sales representative) was given the [facility] standardized written summary, pursuant to the Lucien Jamison Blood Safety Act ([place] Health and Safety Code # 1645, as amended). I attest that I re-evaluated the patient just prior to the surgery and that there has been no change in the patient's H&P, except as documented below: Madhu Estrada M.D. Mar 23, 2018 14:23
--- NOTE | 2018-03-23 14:34 | Operative Note - PDOC ---
Operative Note Operative Note Pre-op Diagnosis: renal insufficiency Procedure: nontunneled dialysis catheter placement Post-op Diagnosis: same Post-op Diagnosis: same as pre-op Anesthesia: local Specimen: none Complications: none Condition: stable Estimated Blood Loss: minimal Drains: none Implant(s) used?: Yes Indications for Procedure need access for dialysis Description of Procedure uneventful placement of non-tunneled dialysis catheter via right IJ vein. Cather cleared for immediate use Madhu Estrada M.D. Mar 23, 2018 14:34
--- NOTE | 2018-03-23 15:02 | Diagnostic Imaging Report ---
Indication: Patient requires access for hemodialysis. Findings: After the indications, procedure, risks, complications, and alternatives of the procedure were explained, written informed consent was obtained. The neck was prepped in the usual sterile fashion. All elements of maximal sterile barrier technique were followed including usage of a cap, mask, sterile gown, sterile gloves, sterile ultrasound cover and sterile ultrasound until, hand hygiene and a large sterile sheet. 1% lidocaine was used to anesthetize the skin. Sonographic evaluation was performed demonstrating a patent and compressible right internal jugular vein. Access was obtained under real-time ultrasound guidance using an 18 gauge needle and a digital image was saved in archive. An 0.035 wire was then advanced into the vein. Needle exchanged for a dilator. A temporary hemodialysis catheter was then advanced over the wire. Wire was removed. Catheter was secured to the skin using 2-0 Prolene suture. Both ports aspirate and flush easily. Total fluoroscopy time 0.4 minutes. Total fluoroscopy dose 46 dGy*cm2 Impression: Successful placement of right transjugular non-tunneled hemodialysis catheter. Catheter cleared for immediate use.
--- NOTE | 2018-03-23 17:09 | Internal Med Progress Note ---
Subjective Date of Service: Mar 23, 2018 Physician Name Yunior Zayas Attending Physician Murali Orozco MD Current Medications Medications (Trade) Dose Ordered Sig/Swetha Route PRN Reason Start Time Stop Time Status Last Admin Dose Admin Acetaminophen (Tylenol) 650 mg Q4H PRN ORAL Mild Pain (Pain Scale 1-3) 03/22/18 07:45 04/21/18 07:44 Amlodipine Besylate (Norvasc) 5 mg BID ORAL 03/22/18 18:00 04/21/18 08:59 03/23/18 09:40 Aspirin (ASA) 325 mg DAILY ORAL 03/24/18 09:00 04/23/18 08:59 Atorvastatin Calcium (Lipitor) 80 mg BEDTIME ORAL 03/23/18 21:00 04/22/18 20:59 Clonidine HCl (Catapres Tab) 0.1 mg Q4H PRN ORAL SBP > 165 03/22/18 15:45 04/21/18 07:44 03/23/18 09:40 Dextrose (Dextrose 50%) 25 ml STAT PRN IV Hypoglycemia 03/22/18 07:45 04/21/18 07:44 Docusate Sodium (Colace) 100 mg TID ORAL 03/22/18 13:00 04/21/18 08:59 03/23/18 13:00 Fish Oil (Fish Oil) 1,000 mg BEFORE BREAKFAST ORAL 03/24/18 06:30 04/23/18 06:29 Heparin Sodium (Porcine) (Heparin 5000 units/ml) 5,000 units EVERY 12 HOURS SUBQ 03/22/18 09:00 04/21/18 08:59 03/22/18 20:30 Heparin Sodium (Porcine) (Heparin Sod 1000 units/ml 10ml) 2,000 unit ONCE PRN INJ FOR USE IN RADIOLOGY 03/23/18 13:30 03/23/18 23:59 Heparin Sodium/ Sodium Chloride (Heparin 2000 units/Ns 1000ml premix) 2,000 unit ONCE PRN INJ FOR USE IN RADIOLOGY 03/23/18 13:30 03/23/18 23:59 Lansoprazole (Prevacid) 30 mg DAILY ORAL 03/23/18 09:00 04/22/18 08:59 03/23/18 09:40 Lidocaine HCl (Xylocaine 1% 30ml) 30 ml ONCE PRN INJ FOR USE IN RADIOLOGY 03/23/18 13:30 03/23/18 23:59 Nateglinide (Starlix) 60 mg TIAC ORAL 03/22/18 16:30 04/21/18 16:29 03/23/18 16:50 Ondansetron HCl (Zofran) 4 mg Q6H PRN IVP Nausea & Vomiting 03/22/18 07:45 04/21/18 07:44 Polyethylene Glycol (Miralax) 17 gm HSPRN PRN ORAL Constipation 03/22/18 07:45 04/21/18 07:44 Sodium Chloride 1,000 ml @ 100 mls/hr Q10H IV 03/22/18 14:15 04/21/18 14:14 03/23/18 00:01 Tamsulosin HCl (Flomax) 0.4 mg BEDTIME ORAL 03/22/18 21:00 04/21/18 20:59 03/22/18 20:29 Allergies: Coded Allergies: No Known Allergies (Unverified , 03/22/18) ROS Limited/Unobtainable: No Constitutional: Reports: weakness HEENT: Reports: no symptoms Cardiovascular: Reports: no symptoms Respiratory: Reports: no symptoms Gastrointestinal/Abdominal: Reports: no symptoms Genitourinary: Reports: no symptoms Neurologic/Psychiatric: Reports: no symptoms Subjective 57 YO M admitted with fatigue and anorexia. Now acute renal failure. Cover for Int Med-Dr Orozco Objective Last Vital Signs Date Time Temp Pulse Resp B/P (MAP) Pulse Ox O2 Delivery O2 Flow Rate FiO2 03/23/18 16:00 97.5 75 22 146/86 97 Room Air 97.5 General Appearance: WD/WN, no apparent distress, alert EENT: PERRL/EOMI, normal ENT inspection Neck: non-tender, normal alignment, supple, normal inspection Cardiovascular: normal peripheral pulses, normal rate, regular rhythm, no gallop/murmur, no JVD Respiratory/Chest: chest wall non-tender, lungs clear, normal breath sounds, no respiratory distress, no accessory muscle use Abdomen: normal bowel sounds, non tender, soft, no organomegaly, no mass Extremities: normal range of motion, non-tender 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, no motor/sensory deficits Skin: normal pigmentation, warm/dry Laboratory Tests Test 03/23/18 04:00 03/23/18 05:40 Urine Eosinophils None seen White Blood Count 14.9 K/UL (4.8-10.8) H Red Blood Count 3.97 M/UL (4.70-6.10) L Hemoglobin 12.3 G/DL (14.2-18.0) L Hematocrit 35.4 % (42.0-52.0) L Mean Corpuscular Volume 89 FL (80-99) Mean Corpuscular Hemoglobin 30.9 PG (27.0-31.0) Mean Corpuscular Hemoglobin Concent 34.6 G/DL (32.0-36.0) Red Cell Distribution Width 12.0 % (11.6-14.8) Platelet Count 238 K/UL (150-450) Mean Platelet Volume 9.0 FL (6.5-10.1) Neutrophils (%) (Auto) 81.5 % (45.0-75.0) H Lymphocytes (%) (Auto) 12.0 % (20.0-45.0) L Monocytes (%) (Auto) 5.3 % (1.0-10.0) Eosinophils (%) (Auto) 0.9 % (0.0-3.0) Basophils (%) (Auto) 0.3 % (0.0-2.0) Prothrombin Time 10.2 SEC (9.30-11.50) Prothromb Time International Ratio 1.0 (0.9-1.1) Activated Partial Thromboplast Time 32 SEC (23-33) Sodium Level 129 MMOL/L (136-145) L Potassium Level 3.2 MMOL/L (3.5-5.1) L Chloride Level 96 MMOL/L (98-107) L Carbon Dioxide Level 19 MMOL/L (21-32) L Anion Gap 14 mmol/L (5-15) Blood Urea Nitrogen 72 mg/dL (7-18) H Creatinine 7.5 MG/DL (0.55-1.30) H Estimat Glomerular Filtration Rate 9.1 mL/min (>60) Glucose Level 148 MG/DL (74-106) H Uric Acid 12.2 MG/DL (2.6-7.2) H Calcium Level 8.3 MG/DL (8.5-10.1) L Phosphorus Level 4.7 MG/DL (2.5-4.9) Magnesium Level 2.6 MG/DL (1.8-2.4) H Iron Level 42 ug/dL (50-175) L Total Iron Binding Capacity 133 ug/dL (250-450) L Percent Iron Saturation 32 % (15-50) Unsaturated Iron Binding 91 ug/dL (112-346) L Ferritin > 2000 NG/ML (8-388) H Total Bilirubin 0.5 MG/DL (0.2-1.0) Gamma Glutamyl Transpeptidase 122 U/L (5-85) H Aspartate Amino Transf (AST/SGOT) 65 U/L (15-37) H Alanine Aminotransferase (ALT/SGPT) 131 U/L (12-78) H Alkaline Phosphatase 108 U/L (46-116) Total Creatine Kinase 320 U/L (26-308) H Pro-B-Type Natriuretic Peptide 106 pg/mL (0-125) Total Protein 7.0 G/DL (6.4-8.2) Albumin 2.1 G/DL (3.4-5.0) L Globulin 4.9 g/dL Albumin/Globulin Ratio 0.4 (1.0-2.7) L Triglycerides Level 525 MG/DL (30-150) H Cholesterol Level 393 MG/DL (< 200) H LDL Cholesterol 296 mg/dL (<100) H HDL Cholesterol 12 MG/DL (40-60) L Cholesterol/HDL Ratio 32.8 (3.3-4.4) H Vitamin B12 Level > 2000 PG/ML (193-986) H Folate 17.6 NG/ML (8.6-58.9) Thyroid Stimulating Hormone (TSH) 1.103 uiU/mL (0.358-3.740) Hepatitis B Surface Antigen Pending Hepatitis B Surface Antibody, Quant Pending Hepatitis C Antibody Pending Intake and Output 03/22/18 03/23/18 19:00 07:00 Intake Total 715 ml 1550 ml Output Total 400 ml 1500 ml Balance 315 ml 50 ml Intake Oral 240 ml 350 ml IV Total 475 ml 1200 ml Output Urine Total 400 ml 1500 ml # Bowel Movements 1 Assessment/Plan Problem List: (1) Fatigue (2) Anorexia (3) Accelerated hypertension Assessment & Plan: Continue norvasc (4) Hypercholesteremia (5) Cardiomyopathy due to hypertension Assessment & Plan: Await echocardiogram. See cardiology note. (6) Acute renal failure (ARF) Assessment & Plan: Hemodialysis today 03/23/18-see nephrology note (7) Diabetes type 2, uncontrolled Assessment & Plan: Continue Yunior Handy MD Mar 23, 2018 17:09
[2018-03-23] MEDS: Tamsulosin 0.4mg cap ORAL SCH (20:39)
[2018-03-23] MEDS ORDERED: Atorvastatin 80mg tab ORAL SCH (21:00)
[2018-03-24] VITALS: BP 111/63
[2018-03-24 04:00] VITALS: BP 134/76
[2018-03-24 05:50] LABS: BASOPHILS % (AUTO) 0.4 % (0.0-2.0); EOSINOPHILS % (AUTO) 0.2 % (0.0-3.0); HEMATOCRIT 35.9 % (42.0-52.0); HEMOGLOBIN 12.4 G/DL (14.2-18.0); LYMPHOCYTES % (AUTO) 12.4 % (20.0-45.0); MEAN CORPUSCULAR VOLUME 90 FL (80-99); MONOCYTES % (AUTO) 5.3 % (1.0-10.0); NEUTROPHILS % (AUTO) 81.7 % (45.0-75.0); PLATELET COUNT 253 K/UL (150-450); RED CELL DISTRIBUTION WIDTH 11.8 % (11.6-14.8); WHITE BLOOD COUNT 13.2 K/UL (4.8-10.8)
[2018-03-24] MEDS: Nateglinide 60mg tab ORAL SCH ×3 (05:58→16:28)
[2018-03-24 06:55] LABS: ALANINE AMINOTRANSFERASE 121 U/L (12-78); ALBUMIN 2.3 G/DL (3.4-5.0); ALBUMIN/GLOBULIN RATIO 0.5 (1.0-2.7); ALKALINE PHOSPHATASE 101 U/L (46-116); ANION GAP 13 mmol/L (5-15); ASPARTATE AMINO TRANSFERASE 54 U/L (15-37); BILIRUBIN,TOTAL 0.6 MG/DL (0.2-1.0); BLOOD UREA NITROGEN 53 mg/dL (7-18); CARBON DIOXIDE 23 MMOL/L (21-32); CHLORIDE 94 MMOL/L (98-107); GAMMA GLUTAMYL TRANSPEPTIDASE 108 U/L (5-85); PHOSPHORUS 3.8 MG/DL (2.5-4.9); POTASSIUM 2.9 MMOL/L (3.5-5.1); SODIUM 130 MMOL/L (136-145)
[2018-03-24 08:00] VITALS: BP 129/85
[2018-03-24] MEDS ORDERED: Aspirin Baby 81mg ORAL SCH (09:00)
[2018-03-24] MEDS: Docusate 100mg cap ORAL SCH ×3 (10:03→18:02)
[2018-03-24] MEDS: Heparin 5000 units/ml inj SUBQ SCH ×2 (10:06→22:06)
[2018-03-24 12:00] VITALS: BP 142/79
--- NOTE | 2018-03-24 12:55 | Nephrology Progress Note ---
Assessment/Plan Problem List: (1) Acute renal failure (ARF) (2) Hypertension (3) Diabetes type 2, uncontrolled (4) Elevated lipids (5) Obesity (BMI 30-39.9) Assessment Acute Renal Failure DM as Hgb A1c Elevated Obesity HTN abnormal LFTs ? Fatty infilt High Uric High Cholestrol Plan DC Brady- Kidney ROWAN no hydro 2D Echo noted Urine studies Hydrate Keep BP and BS in check starlix Flomax Hepatitis panel Dialysis - Agreed first done 03/23 nexr 03/25 allopurinol started Subjective ROS Limited/Unobtainable: No Constitutional: Reports: other - feels better Objective Objective Last 24 Hour Vital Signs Date Time Temp Pulse Resp B/P (MAP) Pulse Ox O2 Delivery O2 Flow Rate FiO2 03/24/18 10:03 83 129/85 03/24/18 08:00 97.4 83 18 129/85 97 Room Air 97.4 03/24/18 04:00 98.7 91 20 134/76 96 Room Air 98.7 03/24/18 00:00 97.5 86 19 111/63 95 Room Air 97.5 03/23/18 20:15 97.8 79 20 128/66 Room Air 97.8 03/23/18 20:15 Room Air 03/23/18 20:00 98.4 85 20 126/81 94 Room Air 98.4 03/23/18 17:00 97.5 73 20 145/88 Room Air 97.5 03/23/18 17:00 Room Air 03/23/18 16:00 97.5 75 22 146/86 97 Room Air 97.5 03/23/18 14:30 78 23 142/81 98 Room Air 03/23/18 14:25 76 23 138/80 98 Room Air 03/23/18 14:20 76 23 141/81 98 Room Air 03/23/18 14:15 78 23 139/84 99 Room Air 03/23/18 13:47 75 17 Intake and Output 03/23/18 03/24/18 19:00 07:00 Intake Total 750 ml 1600 ml Output Total 1939 ml Balance 750 ml -339 ml Intake Oral 750 ml 500 ml IV Total 1100 ml Output Urine Total 650 ml Hemodialysis UF 1289 ml # Bowel Movements 1 Laboratory Tests 03/24/18 03:40: Urine Eosinophils None seen 03/24/18 04:55: White Blood Count 13.2H, Red Blood Count 4.00L, Hemoglobin 12.4L, Hematocrit 35.9L, Mean Corpuscular Volume 90, Mean Corpuscular Hemoglobin 31.0, Mean Corpuscular Hemoglobin Concent 34.6, Red Cell Distribution Width 11.8, Platelet Count 253, Mean Platelet Volume 8.0, Neutrophils (%) (Auto) 81.7H, Lymphocytes ( %) (Auto) 12.4L, Monocytes (%) (Auto) 5.3, Eosinophils (%) (Auto) 0.2, Basophils (%) (Auto) 0.4, Sodium Level 130L, Potassium Level 2.9L, Chloride Level 94L, Carbon Dioxide Level 23, Anion Gap 13, Blood Urea Nitrogen 53H, Creatinine 5.0H, Estimat Glomerular Filtration Rate 14.4, Glucose Level 186H, Uric Acid 8.2H, Calcium Level 8.0L, Phosphorus Level 3.8, Magnesium Level 2.1, Total Bilirubin 0.6, Gamma Glutamyl Transpeptidase 108H, Aspartate Amino Transf (AST/SGOT) 54H, Alanine Aminotransferase (ALT/SGPT) 121H, Alkaline Phosphatase 101, C-Reactive Protein, Quantitative 10.8H, Pro-B-Type Natriuretic Peptide 38, Total Protein 7.1, Albumin 2.3L, Globulin 4.8, Albumin/Globulin Ratio 0.5L Height (Feet): 5 Height (Inches): 11.00 Weight (Pounds): 259 General Appearance: no apparent distress Cardiovascular: normal rate Respiratory/Chest: decreased breath sounds Abdomen: other - obese BRENNAN ASENCIO Mar 24, 2018 12:55
[2018-03-24] MEDS ORDERED: cefTRIAXone 2 GM in D5W 55 ML IVPB ONE (13:00)
[2018-03-24] MEDS ORDERED: Allopurinol 100mg Tab ORAL ONE (13:00)
[2018-03-24] MEDS: Tamsulosin 0.4mg cap ORAL SCH ×2 (14:41→18:02)
[2018-03-24 15:58] VITALS: BP 130/76
--- NOTE | 2018-03-24 16:14 | Pulmonology Progress Note ---
Assessment/Plan Problems: (1) Acute renal failure (ARF) (2) Cardiomyopathy due to hypertension (3) Accelerated hypertension (4) Anorexia (5) Obesity (BMI 30-39.9) (6) Diabetes type 2, uncontrolled Assessment/Plan sliding scale diabetic diet hd prn diabetic diet symptomatic treatment dc planning soon Subjective ROS Limited/Unobtainable: No Interval Events: feeling better Allergies: Coded Allergies: No Known Allergies (Unverified , 03/22/18) Objective Last 24 Hour Vital Signs Date Time Temp Pulse Resp B/P (MAP) Pulse Ox O2 Delivery O2 Flow Rate FiO2 03/24/18 15:58 97.8 97 20 130/76 (94) 95 97.8 03/24/18 12:00 98.1 81 22 142/79 (100) 93 98.1 03/24/18 10:03 83 129/85 03/24/18 08:50 Room Air 03/24/18 08:00 97.4 83 18 129/85 97 Room Air 97.4 03/24/18 04:00 98.7 91 20 134/76 96 Room Air 98.7 03/24/18 00:00 97.5 86 19 111/63 95 Room Air 97.5 03/23/18 20:15 97.8 79 20 128/66 Room Air 97.8 03/23/18 20:15 Room Air 03/23/18 20:00 98.4 85 20 126/81 94 Room Air 98.4 03/23/18 17:00 97.5 73 20 145/88 Room Air 97.5 03/23/18 17:00 Room Air Intake and Output 03/23/18 03/24/18 19:00 07:00 Intake Total 750 ml 1600 ml Output Total 1939 ml Balance 750 ml -339 ml Intake Oral 750 ml 500 ml IV Total 1100 ml Output Urine Total 650 ml Hemodialysis UF 1289 ml # Bowel Movements 1 Objective General Appearance: WD/WN HEENT: normocephalic, atraumatic Respiratory/Chest: chest wall non-tender, lungs clear Breasts: no masses Cardiovascular: normal peripheral pulses, normal rate Abdomen: normal bowel sounds, no organomegaly 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 Lymphatic: no neck adenopathy Microbiology Date/Time Source Procedure Growth Status 03/23/18 12:06 Stool Clostridium difficile Toxin Assay - Final Complete Laboratory Tests 03/24/18 03:40: Urine Eosinophils None seen 03/24/18 04:55: White Blood Count 13.2H, Red Blood Count 4.00L, Hemoglobin 12.4L, Hematocrit 35.9L, Mean Corpuscular Volume 90, Mean Corpuscular Hemoglobin 31.0, Mean Corpuscular Hemoglobin Concent 34.6, Red Cell Distribution Width 11.8, Platelet Count 253, Mean Platelet Volume 8.0, Neutrophils (%) (Auto) 81.7H, Lymphocytes ( %) (Auto) 12.4L, Monocytes (%) (Auto) 5.3, Eosinophils (%) (Auto) 0.2, Basophils (%) (Auto) 0.4, Sodium Level 130L, Potassium Level 2.9L, Chloride Level 94L, Carbon Dioxide Level 23, Anion Gap 13, Blood Urea Nitrogen 53H, Creatinine 5.0H, Estimat Glomerular Filtration Rate 14.4, Glucose Level 186H, Uric Acid 8.2H, Calcium Level 8.0L, Phosphorus Level 3.8, Magnesium Level 2.1, Total Bilirubin 0.6, Gamma Glutamyl Transpeptidase 108H, Aspartate Amino Transf (AST/SGOT) 54H, Alanine Aminotransferase (ALT/SGPT) 121H, Alkaline Phosphatase 101, C-Reactive Protein, Quantitative 10.8H, Pro-B-Type Natriuretic Peptide 38, Total Protein 7.1, Albumin 2.3L, Globulin 4.8, Albumin/Globulin Ratio 0.5L Current Medications Medications (Trade) Dose Ordered Sig/Swetha Route PRN Reason Start Time Stop Time Status Last Admin Dose Admin Acetaminophen (Tylenol) 650 mg Q4H PRN ORAL Mild Pain (Pain Scale 1-3) 03/22/18 07:45 04/21/18 07:44 Allopurinol (Zyloprim) 100 mg DAILY ORAL 03/25/18 09:00 04/24/18 08:59 Amlodipine Besylate (Norvasc) 5 mg BID ORAL 03/22/18 18:00 04/21/18 08:59 03/24/18 10:03 Aspirin (ASA) 325 mg DAILY ORAL 03/24/18 09:00 04/23/18 08:59 03/24/18 10:03 Atorvastatin Calcium (Lipitor) 40 mg BEDTIME ORAL 03/24/18 21:00 04/22/18 20:59 Clonidine HCl (Catapres Tab) 0.1 mg Q4H PRN ORAL SBP > 165 03/22/18 15:45 04/21/18 07:44 03/23/18 09:40 Dextrose (Dextrose 50%) 25 ml STAT PRN IV Hypoglycemia 03/22/18 07:45 04/21/18 07:44 Docusate Sodium (Colace) 100 mg TID ORAL 03/22/18 13:00 04/21/18 08:59 03/24/18 14:41 Fish Oil (Fish Oil) 1,000 mg BEFORE BREAKFAST ORAL 03/24/18 06:30 04/23/18 06:29 03/24/18 05:58 Heparin Sodium (Porcine) (Heparin 5000 units/ml) 5,000 units EVERY 12 HOURS SUBQ 03/22/18 09:00 04/21/18 08:59 03/24/18 10:06 Lansoprazole (Prevacid) 30 mg DAILY ORAL 03/23/18 09:00 04/22/18 08:59 03/24/18 10:03 Nateglinide (Starlix) 60 mg TIAC ORAL 03/22/18 16:30 04/21/18 16:29 03/24/18 11:53 Ondansetron HCl (Zofran) 4 mg Q6H PRN IVP Nausea & Vomiting 03/22/18 07:45 04/21/18 07:44 Polyethylene Glycol (Miralax) 17 gm HSPRN PRN ORAL Constipation 03/22/18 07:45 04/21/18 07:44 Potassium Chloride (K-Dur) 40 meq TWICE A DAY ORAL 03/24/18 09:00 03/24/18 18:01 03/24/18 10:03 Sodium Chloride 1,000 ml @ 50 mls/hr Q20H IV 03/24/18 09:30 04/21/18 09:29 03/24/18 11:13 Tamsulosin HCl (Flomax) 0.4 mg BID ORAL 03/24/18 13:00 04/21/18 20:59 03/24/18 14:41 Ethan Barnett MD Mar 24, 2018 16:14
--- NOTE | 2018-03-24 17:56 | Internal Med Progress Note ---
Subjective Date of Service: Mar 24, 2018 Physician Name Yunior Zayas Attending Physician Murali Orozco MD Current Medications Medications (Trade) Dose Ordered Sig/Swetha Route PRN Reason Start Time Stop Time Status Last Admin Dose Admin Acetaminophen (Tylenol) 650 mg Q4H PRN ORAL Mild Pain (Pain Scale 1-3) 03/22/18 07:45 04/21/18 07:44 Allopurinol (Zyloprim) 100 mg DAILY ORAL 03/25/18 09:00 04/24/18 08:59 Amlodipine Besylate (Norvasc) 5 mg BID ORAL 03/22/18 18:00 04/21/18 08:59 03/24/18 10:03 Aspirin (ASA) 325 mg DAILY ORAL 03/24/18 09:00 04/23/18 08:59 03/24/18 10:03 Atorvastatin Calcium (Lipitor) 40 mg BEDTIME ORAL 03/24/18 21:00 04/22/18 20:59 Clonidine HCl (Catapres Tab) 0.1 mg Q4H PRN ORAL SBP > 165 03/22/18 15:45 04/21/18 07:44 03/23/18 09:40 Dextrose (Dextrose 50%) 25 ml STAT PRN IV Hypoglycemia 03/22/18 07:45 04/21/18 07:44 Docusate Sodium (Colace) 100 mg TID ORAL 03/22/18 13:00 04/21/18 08:59 03/24/18 14:41 Fish Oil (Fish Oil) 1,000 mg BEFORE BREAKFAST ORAL 03/24/18 06:30 04/23/18 06:29 03/24/18 05:58 Heparin Sodium (Porcine) (Heparin 5000 units/ml) 5,000 units EVERY 12 HOURS SUBQ 03/22/18 09:00 04/21/18 08:59 03/24/18 10:06 Lansoprazole (Prevacid) 30 mg DAILY ORAL 03/23/18 09:00 04/22/18 08:59 03/24/18 10:03 Nateglinide (Starlix) 60 mg TIAC ORAL 03/22/18 16:30 04/21/18 16:29 03/24/18 16:28 Ondansetron HCl (Zofran) 4 mg Q6H PRN IVP Nausea & Vomiting 03/22/18 07:45 04/21/18 07:44 Polyethylene Glycol (Miralax) 17 gm HSPRN PRN ORAL Constipation 03/22/18 07:45 04/21/18 07:44 Potassium Chloride (K-Dur) 40 meq TWICE A DAY ORAL 03/24/18 09:00 03/24/18 18:01 03/24/18 10:03 Sodium Chloride 1,000 ml @ 50 mls/hr Q20H IV 03/24/18 09:30 04/21/18 09:29 03/24/18 11:13 Tamsulosin HCl (Flomax) 0.4 mg BID ORAL 03/24/18 13:00 04/21/18 20:59 03/24/18 14:41 Allergies: Coded Allergies: No Known Allergies (Unverified , 03/22/18) ROS Limited/Unobtainable: No Constitutional: Reports: no symptoms HEENT: Reports: no symptoms Cardiovascular: Reports: no symptoms Respiratory: Reports: no symptoms Gastrointestinal/Abdominal: Reports: no symptoms Genitourinary: Reports: no symptoms Neurologic/Psychiatric: Reports: no symptoms Subjective 57 YO M admitted with fatigue and anorexia. Now acute renal failure. Cover for Int Med-Dr Orozco Objective Last Vital Signs Date Time Temp Pulse Resp B/P (MAP) Pulse Ox O2 Delivery O2 Flow Rate FiO2 03/24/18 15:58 97.8 97 20 130/76 (94) 95 97.8 03/24/18 08:50 Room Air Laboratory Tests Test 03/24/18 03:40 03/24/18 04:55 Urine Eosinophils None seen White Blood Count 13.2 K/UL (4.8-10.8) H Red Blood Count 4.00 M/UL (4.70-6.10) L Hemoglobin 12.4 G/DL (14.2-18.0) L Hematocrit 35.9 % (42.0-52.0) L Mean Corpuscular Volume 90 FL (80-99) Mean Corpuscular Hemoglobin 31.0 PG (27.0-31.0) Mean Corpuscular Hemoglobin Concent 34.6 G/DL (32.0-36.0) Red Cell Distribution Width 11.8 % (11.6-14.8) Platelet Count 253 K/UL (150-450) Mean Platelet Volume 8.0 FL (6.5-10.1) Neutrophils (%) (Auto) 81.7 % (45.0-75.0) H Lymphocytes (%) (Auto) 12.4 % (20.0-45.0) L Monocytes (%) (Auto) 5.3 % (1.0-10.0) Eosinophils (%) (Auto) 0.2 % (0.0-3.0) Basophils (%) (Auto) 0.4 % (0.0-2.0) Sodium Level 130 MMOL/L (136-145) L Potassium Level 2.9 MMOL/L (3.5-5.1) L Chloride Level 94 MMOL/L (98-107) L Carbon Dioxide Level 23 MMOL/L (21-32) Anion Gap 13 mmol/L (5-15) Blood Urea Nitrogen 53 mg/dL (7-18) H Creatinine 5.0 MG/DL (0.55-1.30) H Estimat Glomerular Filtration Rate 14.4 mL/min (>60) Glucose Level 186 MG/DL (74-106) H Uric Acid 8.2 MG/DL (2.6-7.2) H Calcium Level 8.0 MG/DL (8.5-10.1) L Phosphorus Level 3.8 MG/DL (2.5-4.9) Magnesium Level 2.1 MG/DL (1.8-2.4) Total Bilirubin 0.6 MG/DL (0.2-1.0) Gamma Glutamyl Transpeptidase 108 U/L (5-85) H Aspartate Amino Transf (AST/SGOT) 54 U/L (15-37) H Alanine Aminotransferase (ALT/SGPT) 121 U/L (12-78) H Alkaline Phosphatase 101 U/L (46-116) C-Reactive Protein, Quantitative 10.8 mg/dL (0.00-0.90) H Pro-B-Type Natriuretic Peptide 38 pg/mL (0-125) Total Protein 7.1 G/DL (6.4-8.2) Albumin 2.3 G/DL (3.4-5.0) L Globulin 4.8 g/dL Albumin/Globulin Ratio 0.5 (1.0-2.7) L Microbiology Date/Time Source Procedure Growth Status 03/23/18 12:06 Stool Clostridium difficile Toxin Assay - Final Complete Intake and Output 03/23/18 03/24/18 19:00 07:00 Intake Total 750 ml 1600 ml Output Total 1939 ml Balance 750 ml -339 ml Intake Oral 750 ml 500 ml IV Total 1100 ml Output Urine Total 650 ml Hemodialysis UF 1289 ml # Bowel Movements 1 Objective General Appearance: WD/WN, no apparent distress, alert EENT: PERRL/EOMI, normal ENT inspection Neck: non-tender, normal alignment, supple, normal inspection Cardiovascular: normal peripheral pulses, normal rate, regular rhythm, no gallop/murmur, no JVD Respiratory/Chest: chest wall non-tender, lungs clear, normal breath sounds, no respiratory distress, no accessory muscle use Abdomen: normal bowel sounds, non tender, soft, no organomegaly, no mass Extremities: normal range of motion, non-tender 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 See cardiology note. (6) Acute renal failure (ARF) Assessment & Plan: Last Hemodialysis 03/23/18; next 03/25/18-see nephrology note (7) Diabetes type 2, uncontrolled Assessment & Plan: Continue starlix Status: not improved Yunior Zayas MD Mar 24, 2018 17:56
--- NOTE | 2018-03-24 18:19 | Cardiology Progress Note ---
Assessment/Plan Status: stable Assessment/Plan Acute Renal Failure DM as Hgb A1c Elevated Obesity HTN abnormal LFTs AMS Urinary retention 1) Echocardiogram reviewed- evidence of hypertensive heart disease, continue blood pressure control. 2) Allopurinol for elevated uric acid 3) outpatient ischemia evaluation due to multiple cardiac risk factors 4) Norvasc for hypertension, add clonidine or hydralazine if not controlled 5) Aspirin 6) Lipitor and fish oil 7) Repeat lipid panel in 6 weeks 8) Maintain hemodialysis Subjective Cardiovascular: Reports: no symptoms Respiratory: Reports: no symptoms Gastrointestinal/Abdominal: Reports: no symptoms Genitourinary: Reports: no symptoms Subjective No acute events, no complaints, vitals stable, BP controlled, no side effects of medications, HD last night, plan again for tomorrow Echo with LV from HTN, normal function and PA pressures. Objective Last 24 Hour Vital Signs Date Time Temp Pulse Resp B/P (MAP) Pulse Ox O2 Delivery O2 Flow Rate FiO2 03/24/18 18:02 97 130/76 03/24/18 15:58 97.8 97 20 130/76 (94) 95 97.8 03/24/18 12:00 98.1 81 22 142/79 (100) 93 98.1 03/24/18 10:03 83 129/85 03/24/18 08:50 Room Air 03/24/18 08:00 97.4 83 18 129/85 97 Room Air 97.4 03/24/18 04:00 98.7 91 20 134/76 96 Room Air 98.7 03/24/18 00:00 97.5 86 19 111/63 95 Room Air 97.5 03/23/18 20:15 97.8 79 20 128/66 Room Air 97.8 03/23/18 20:15 Room Air 03/23/18 20:00 98.4 85 20 126/81 94 Room Air 98.4 General Appearance: no apparent distress EENT: PERRL/EOMI Neck: non-tender Rhythm: NSR Cardiovascular: normal peripheral pulses Respiratory/Chest: chest wall non-tender Abdomen: normal bowel sounds Extremities: normal range of motion 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 Intake and Output 03/23/18 03/24/18 19:00 07:00 Intake Total 750 ml 1600 ml Output Total 1939 ml Balance 750 ml -339 ml Intake Oral 750 ml 500 ml IV Total 1100 ml Output Urine Total 650 ml Hemodialysis UF 1289 ml # Bowel Movements 1 Laboratory Tests Test 03/24/18 03:40 03/24/18 04:55 Urine Eosinophils None seen White Blood Count 13.2 K/UL (4.8-10.8) H Red Blood Count 4.00 M/UL (4.70-6.10) L Hemoglobin 12.4 G/DL (14.2-18.0) L Hematocrit 35.9 % (42.0-52.0) L Mean Corpuscular Volume 90 FL (80-99) Mean Corpuscular Hemoglobin 31.0 PG (27.0-31.0) Mean Corpuscular Hemoglobin Concent 34.6 G/DL (32.0-36.0) Red Cell Distribution Width 11.8 % (11.6-14.8) Platelet Count 253 K/UL (150-450) Mean Platelet Volume 8.0 FL (6.5-10.1) Neutrophils (%) (Auto) 81.7 % (45.0-75.0) H Lymphocytes (%) (Auto) 12.4 % (20.0-45.0) L Monocytes (%) (Auto) 5.3 % (1.0-10.0) Eosinophils (%) (Auto) 0.2 % (0.0-3.0) Basophils (%) (Auto) 0.4 % (0.0-2.0) Sodium Level 130 MMOL/L (136-145) L Potassium Level 2.9 MMOL/L (3.5-5.1) L Chloride Level 94 MMOL/L (98-107) L Carbon Dioxide Level 23 MMOL/L (21-32) Anion Gap 13 mmol/L (5-15) Blood Urea Nitrogen 53 mg/dL (7-18) H Creatinine 5.0 MG/DL (0.55-1.30) H Estimat Glomerular Filtration Rate 14.4 mL/min (>60) Glucose Level 186 MG/DL (74-106) H Uric Acid 8.2 MG/DL (2.6-7.2) H Calcium Level 8.0 MG/DL (8.5-10.1) L Phosphorus Level 3.8 MG/DL (2.5-4.9) Magnesium Level 2.1 MG/DL (1.8-2.4) Total Bilirubin 0.6 MG/DL (0.2-1.0) Gamma Glutamyl Transpeptidase 108 U/L (5-85) H Aspartate Amino Transf (AST/SGOT) 54 U/L (15-37) H Alanine Aminotransferase (ALT/SGPT) 121 U/L (12-78) H Alkaline Phosphatase 101 U/L (46-116) C-Reactive Protein, Quantitative 10.8 mg/dL (0.00-0.90) H Pro-B-Type Natriuretic Peptide 38 pg/mL (0-125) Total Protein 7.1 G/DL (6.4-8.2) Albumin 2.3 G/DL (3.4-5.0) L Globulin 4.8 g/dL Albumin/Globulin Ratio 0.5 (1.0-2.7) L Microbiology Date/Time Source Procedure Growth Status 03/23/18 12:06 Stool Clostridium difficile Toxin Assay - Final Complete FilsoVijay roblero M.D. Mar 24, 2018 18:19
[2018-03-24 20:00] VITALS: BP 141/77
--- NOTE | 2018-03-24 20:33 | Consultation ---
History of Present Illness General Date patient seen: Mar 24, 2018 Present Illness HPI 57 y/o M with hx of untreated HTN, HLD, Obesity, HLD, uncontrolled Dm2 presents to ED on 03/22 with weakness and decreased urination, confusion, decreased appetite. Found to have LEATHA and abnormal electrolytes. . Allergies: Coded Allergies: No Known Allergies (Unverified , 03/22/18) Medication History Scheduled Hydrochlorothiazide* (Hydrochlorothiazide*), 12.5 MG ORAL DAILY, (Reported) Patient History Healthcare decision maker Resuscitation status Full Code Advanced Directive on File Patient History Narrative Pmhx: as above Shx: The patient has a long-term partner who is at the bedside. The patient admits to "heavy" alcohol use. The patient denies tobacco use. 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 HEENT: Pupils are equal and responsive to light and accommodation. Extraocular movements are intact. NECK: Supple without lymphadenopathy. CHEST: Lungs are clear to auscultation bilaterally without wheezes or rales. CARDIOVASCULAR: Regular rhythm rate. S1 and S2 are normal without murmurs, rubs, or gallops. ABDOMEN: Soft, nontender, nondistended. Positive bowel sounds. No evidence of hepatosplenomegaly. Currently, no rebound or guarding noted. EXTREMITIES: Negative for clubbing, cyanosis, or edema. Last 24 Hour Vital Signs Date Time Temp Pulse Resp B/P (MAP) Pulse Ox O2 Delivery O2 Flow Rate FiO2 03/24/18 18:02 97 130/76 03/24/18 15:58 97.8 97 20 130/76 (94) 95 97.8 03/24/18 12:00 98.1 81 22 142/79 (100) 93 98.1 03/24/18 10:03 83 129/85 03/24/18 08:50 Room Air 03/24/18 08:00 97.4 83 18 129/85 97 Room Air 97.4 03/24/18 04:00 98.7 91 20 134/76 96 Room Air 98.7 03/24/18 00:00 97.5 86 19 111/63 95 Room Air 97.5 Intake and Output 03/23/18 03/24/18 19:00 07:00 Intake Total 750 ml 1600 ml Output Total 1939 ml Balance 750 ml -339 ml Intake Oral 750 ml 500 ml IV Total 1100 ml Output Urine Total 650 ml Hemodialysis UF 1289 ml # Bowel Movements 1 Laboratory Tests Test 03/24/18 03:40 03/24/18 04:55 Urine Eosinophils None seen White Blood Count 13.2 K/UL (4.8-10.8) H Red Blood Count 4.00 M/UL (4.70-6.10) L Hemoglobin 12.4 G/DL (14.2-18.0) L Hematocrit 35.9 % (42.0-52.0) L Mean Corpuscular Volume 90 FL (80-99) Mean Corpuscular Hemoglobin 31.0 PG (27.0-31.0) Mean Corpuscular Hemoglobin Concent 34.6 G/DL (32.0-36.0) Red Cell Distribution Width 11.8 % (11.6-14.8) Platelet Count 253 K/UL (150-450) Mean Platelet Volume 8.0 FL (6.5-10.1) Neutrophils (%) (Auto) 81.7 % (45.0-75.0) H Lymphocytes (%) (Auto) 12.4 % (20.0-45.0) L Monocytes (%) (Auto) 5.3 % (1.0-10.0) Eosinophils (%) (Auto) 0.2 % (0.0-3.0) Basophils (%) (Auto) 0.4 % (0.0-2.0) Sodium Level 130 MMOL/L (136-145) L Potassium Level 2.9 MMOL/L (3.5-5.1) L Chloride Level 94 MMOL/L (98-107) L Carbon Dioxide Level 23 MMOL/L (21-32) Anion Gap 13 mmol/L (5-15) Blood Urea Nitrogen 53 mg/dL (7-18) H Creatinine 5.0 MG/DL (0.55-1.30) H Estimat Glomerular Filtration Rate 14.4 mL/min (>60) Glucose Level 186 MG/DL (74-106) H Hemoglobin A1c 7.1 % (4.3-6.0) H Uric Acid 8.2 MG/DL (2.6-7.2) H Calcium Level 8.0 MG/DL (8.5-10.1) L Phosphorus Level 3.8 MG/DL (2.5-4.9) Magnesium Level 2.1 MG/DL (1.8-2.4) Total Bilirubin 0.6 MG/DL (0.2-1.0) Gamma Glutamyl Transpeptidase 108 U/L (5-85) H Aspartate Amino Transf (AST/SGOT) 54 U/L (15-37) H Alanine Aminotransferase (ALT/SGPT) 121 U/L (12-78) H Alkaline Phosphatase 101 U/L (46-116) C-Reactive Protein, Quantitative 10.8 mg/dL (0.00-0.90) H Pro-B-Type Natriuretic Peptide 38 pg/mL (0-125) Total Protein 7.1 G/DL (6.4-8.2) Albumin 2.3 G/DL (3.4-5.0) L Globulin 4.8 g/dL Albumin/Globulin Ratio 0.5 (1.0-2.7) L Height (Feet): 5 Height (Inches): 11.00 Weight (Pounds): 259 Medications Current Medications Medications (Trade) Dose Ordered Sig/Swetha Route PRN Reason Start Time Stop Time Status Last Admin Dose Admin Acetaminophen (Tylenol) 650 mg Q4H PRN ORAL Mild Pain (Pain Scale 1-3) 03/22/18 07:45 04/21/18 07:44 Allopurinol (Zyloprim) 100 mg DAILY ORAL 03/25/18 09:00 04/24/18 08:59 Amlodipine Besylate (Norvasc) 5 mg BID ORAL 03/22/18 18:00 04/21/18 08:59 03/24/18 18:02 Aspirin (ASA) 325 mg DAILY ORAL 03/24/18 09:00 04/23/18 08:59 03/24/18 10:03 Atorvastatin Calcium (Lipitor) 40 mg BEDTIME ORAL 03/24/18 21:00 04/22/18 20:59 Clonidine HCl (Catapres Tab) 0.1 mg Q4H PRN ORAL SBP > 165 03/22/18 15:45 04/21/18 07:44 03/23/18 09:40 Dextrose (Dextrose 50%) 25 ml STAT PRN IV Hypoglycemia 03/22/18 07:45 04/21/18 07:44 Dextrose (Dextrose 50%) 25 ml STAT PRN IV Hypoglycemia 03/24/18 18:00 04/23/18 17:59 Dextrose (Dextrose 50%) 50 ml STAT PRN IV Hypoglycemia 03/24/18 18:00 04/23/18 17:59 Docusate Sodium (Colace) 100 mg TID ORAL 03/22/18 13:00 04/21/18 08:59 03/24/18 18:02 Fish Oil (Fish Oil) 1,000 mg BEFORE BREAKFAST ORAL 03/24/18 06:30 04/23/18 06:29 03/24/18 05:58 Heparin Sodium (Porcine) (Heparin 5000 units/ml) 5,000 units EVERY 12 HOURS SUBQ 03/22/18 09:00 04/21/18 08:59 03/24/18 10:06 Insulin Aspart (NovoLOG) BEFORE MEALS AND HS SUBQ 03/24/18 21:00 04/23/18 20:59 Lansoprazole (Prevacid) 30 mg DAILY ORAL 03/23/18 09:00 04/22/18 08:59 03/24/18 10:03 Nateglinide (Starlix) 60 mg TIAC ORAL 03/22/18 16:30 04/21/18 16:29 03/24/18 16:28 Ondansetron HCl (Zofran) 4 mg Q6H PRN IVP Nausea & Vomiting 03/22/18 07:45 04/21/18 07:44 Polyethylene Glycol (Miralax) 17 gm HSPRN PRN ORAL Constipation 03/22/18 07:45 04/21/18 07:44 Sodium Chloride 1,000 ml @ 50 mls/hr Q20H IV 03/24/18 09:30 04/21/18 09:29 03/24/18 11:13 Tamsulosin HCl (Flomax) 0.4 mg BID ORAL 03/24/18 13:00 04/21/18 20:59 03/24/18 18:02 Assessment/Plan Assessment/Plan Abx: Ceftriaxone x1 03/24 Assessment: Acute renal failure (?CKD)- started on HD 03/23 Electrolyte disturbances Leukocytosis (mild)- suspect likely reactive -CXR p -u/a no pyuria -Cdiff neg untreated HTN HLD Obesity HLD uncontrolled Dm2 Plan: -Continue to monitor off abx -f/u cx -Monitor CBC/BMP, temperatures -f/u CXR Thank you for this consultation. Will continue to follow along with you. Discussed with Marina Nava M.D. Mar 24, 2018 20:33
[2018-03-24] MEDS: NovoLOG Insulin Flexpen SUBQ SCH (21:37)
[2018-03-24] MEDS: Atorvastatin 80mg tab ORAL SCH (21:38)
[2018-03-25] VITALS: BP 139/90
[2018-03-25 04:00] VITALS: BP 150/90
[2018-03-25 05:40] LABS: BASOPHILS % (AUTO) 0.5 % (0.0-2.0); HEMATOCRIT 34.6 % (42.0-52.0); HEMOGLOBIN 11.8 G/DL (14.2-18.0); LYMPHOCYTES % (AUTO) 12.3 % (20.0-45.0); MEAN CORPUSCULAR VOLUME 90 FL (80-99); MONOCYTES % (AUTO) 5.8 % (1.0-10.0); NEUTROPHILS % (AUTO) 81.4 % (45.0-75.0); PLATELET COUNT 307 K/UL (150-450); RED BLOOD COUNT 3.82 M/UL (4.70-6.10); RED CELL DISTRIBUTION WIDTH 11.6 % (11.6-14.8); WHITE BLOOD COUNT 11.9 K/UL (4.8-10.8)
[2018-03-25] MEDS: NovoLOG Insulin Flexpen SUBQ SCH ×4 (05:53→20:55)
[2018-03-25 05:54] LABS: ALANINE AMINOTRANSFERASE 184 U/L (12-78); ALBUMIN 2.4 G/DL (3.4-5.0); ALBUMIN/GLOBULIN RATIO 0.5 (1.0-2.7); ALKALINE PHOSPHATASE 114 U/L (46-116); ANION GAP 10 mmol/L (5-15); ASPARTATE AMINO TRANSFERASE 150 U/L (15-37); BILIRUBIN,TOTAL 0.5 MG/DL (0.2-1.0); BLOOD UREA NITROGEN 64 mg/dL (7-18); CALCIUM 8.5 MG/DL (8.5-10.1); CARBON DIOXIDE 22 MMOL/L (21-32); CHLORIDE 102 MMOL/L (98-107); CREATINE KINASE 111 U/L (26-308); CREATININE 4.5 MG/DL (0.55-1.30); PHOSPHORUS 3.9 MG/DL (2.5-4.9); POTASSIUM 3.7 MMOL/L (3.5-5.1); SODIUM 134 MMOL/L (136-145)
[2018-03-25] MEDS: Nateglinide 60mg tab ORAL SCH ×3 (05:59→17:28)
[2018-03-25 08:00] VITALS: BP 140/90
[2018-03-25] MEDS ORDERED: Allopurinol 100mg Tab ORAL SCH (09:00)
[2018-03-25] MEDS: Docusate 100mg cap ORAL SCH ×3 (09:26→17:29)
[2018-03-25] MEDS: Tamsulosin 0.4mg cap ORAL SCH ×2 (09:26→17:29)
[2018-03-25] MEDS: Allopurinol 100mg Tab ORAL SCH (09:26)
[2018-03-25] MEDS: Heparin 5000 units/ml inj SUBQ SCH ×2 (09:28→20:56)
--- NOTE | 2018-03-25 10:42 | Nephrology Progress Note ---
Assessment/Plan Problem List: (1) Acute renal failure (ARF) (2) Hypertension (3) Diabetes type 2, uncontrolled (4) Elevated lipids (5) Obesity (BMI 30-39.9) Assessment Acute Renal Failure seems resolving DM as Hgb A1c Elevated Obesity HTN abnormal LFTs ? Fatty infilt High Uric High Cholestrol Plan DC Brady- Voiding well. Kidney ROWAN no hydro 2D Echo noted Urine studies Hydrate Keep BP and BS in check starlix to 120 mg TID Flomax Hepatitis panel Dialysis - Agreed first done 03/23 nexr 03/25 allopurinol started discussed with daughter Subjective ROS Limited/Unobtainable: No Constitutional: Reports: other - stronger Objective Objective Last 24 Hour Vital Signs Date Time Temp Pulse Resp B/P (MAP) Pulse Ox O2 Delivery O2 Flow Rate FiO2 03/25/18 09:27 98 140/90 03/25/18 09:00 Room Air 03/25/18 08:00 97.7 98 20 140/90 (107) 95 97.7 03/25/18 04:00 98.3 90 19 150/90 (110) 94 98.3 03/25/18 00:00 97.7 96 18 139/90 (106) 96 97.7 03/24/18 21:00 Room Air 03/24/18 20:00 98.3 86 19 141/77 (98) 94 98.3 03/24/18 18:02 97 130/76 03/24/18 15:58 97.8 97 20 130/76 (94) 95 97.8 03/24/18 12:00 98.1 81 22 142/79 (100) 93 98.1 Intake and Output 03/24/18 03/25/18 19:00 07:00 Intake Total 500 ml 600 ml Output Total 800 ml Balance -300 ml 600 ml Intake Oral 500 ml IV Total 600 ml Output Urine Total 800 ml # Voids 2 3 Laboratory Tests 03/25/18 03:12: Urine Eosinophils None seen 03/25/18 04:45: White Blood Count 11.9H, Red Blood Count 3.82L, Hemoglobin 11.8L, Hematocrit 34.6L, Mean Corpuscular Volume 90, Mean Corpuscular Hemoglobin 31.0, Mean Corpuscular Hemoglobin Concent 34.2, Red Cell Distribution Width 11.6, Platelet Count 307, Mean Platelet Volume 7.7, Neutrophils (%) (Auto) 81.4H, Lymphocytes ( %) (Auto) 12.3L, Monocytes (%) (Auto) 5.8, Eosinophils (%) (Auto) 0.0, Basophils (%) (Auto) 0.5, Sodium Level 134L, Potassium Level 3.7, Chloride Level 102, Carbon Dioxide Level 22, Anion Gap 10, Blood Urea Nitrogen 64H, Creatinine 4.5H, Estimat Glomerular Filtration Rate 16.4, Glucose Level 159H, Uric Acid 9.6H, Calcium Level 8.5, Phosphorus Level 3.9, Magnesium Level 2.1, Total Bilirubin 0.5, Gamma Glutamyl Transpeptidase 115H, Aspartate Amino Transf (AST/SGOT) 150H, Alanine Aminotransferase (ALT/SGPT) 184H, Alkaline Phosphatase 114, Total Creatine Kinase 111, Total Protein 7.2, Albumin 2.4L, Globulin 4.8, Albumin/Globulin Ratio 0.5L Height (Feet): 5 Height (Inches): 11.00 Weight (Pounds): 259 General Appearance: no apparent distress Cardiovascular: normal rate Respiratory/Chest: decreased breath sounds Abdomen: soft BRENNAN ASENCIO Mar 25, 2018 10:42
--- NOTE | 2018-03-25 11:24 | Diagnostic Imaging Report ---
EXAM: XR Chest, 1 View CLINICAL HISTORY: COUGH TECHNIQUE: Frontal view of the chest. COMPARISON: No relevant prior studies available. FINDINGS: Lungs: Left lower lung consolidation, suspicious for pneumonia. Pleural space: Unremarkable. No pneumothorax. Heart: Unremarkable. No cardiomegaly. Mediastinum: Right internal jugular dialysis catheter, tips near the cavoatrial junction. Bones/joints: Unremarkable. IMPRESSION: Left lower lung consolidation, suspicious for pneumonia. Right IJ dialysis catheter.
[2018-03-25 12:00] VITALS: BP 135/95
--- NOTE | 2018-03-25 13:13 | Diagnostic Imaging Report ---
EXAM: US Abdomen Complete CLINICAL HISTORY: ABD PAIN TECHNIQUE: Real-time ultrasound of the abdomen (complete) with image documentation. COMPARISON: No relevant prior studies available. FINDINGS: Liver: Echogenic parenchyma may reflect steatosis. Gallbladder: Unremarkable. No gallstones. Common bile duct: Unremarkable as visualized. No stones. No dilation. Pancreas: Unremarkable as visualized. Kidneys: The right kidney demonstrates an echogenic focus in the mid zone, which could reflect a nonobstructing stone. There is also a 2.9 cm mid zone. Cortical cysts.. Spleen: Unremarkable. No splenomegaly. Aorta: Unremarkable. No aneurysm. Inferior vena cava: Unremarkable. IMPRESSION: Question of a nonobstructing mid zone right renal calculus. There is also a cortical cyst in this area. Echogenic liver parenchyma may reflect steatosis. No gallstones or other biliary pathology
--- NOTE | 2018-03-25 13:58 | Internal Med Progress Note ---
Subjective Date of Service: Mar 25, 2018 Physician Name Yunior Zayas Attending Physician Murali Orozco MD Current Medications Medications (Trade) Dose Ordered Sig/Swetha Route PRN Reason Start Time Stop Time Status Last Admin Dose Admin Acetaminophen (Tylenol) 650 mg Q4H PRN ORAL Mild Pain (Pain Scale 1-3) 03/22/18 07:45 04/21/18 07:44 Allopurinol (Zyloprim) 200 mg DAILY ORAL 03/25/18 09:00 04/24/18 08:59 03/25/18 09:26 Amlodipine Besylate (Norvasc) 5 mg BID ORAL 03/22/18 18:00 04/21/18 08:59 03/25/18 09:27 Aspirin (ASA) 325 mg DAILY ORAL 03/24/18 09:00 04/23/18 08:59 03/25/18 09:27 Atorvastatin Calcium (Lipitor) 40 mg BEDTIME ORAL 03/24/18 21:00 04/22/18 20:59 03/24/18 21:38 Clonidine HCl (Catapres Tab) 0.1 mg Q4H PRN ORAL SBP > 165 03/22/18 15:45 04/21/18 07:44 03/23/18 09:40 Dextrose (Dextrose 50%) 25 ml STAT PRN IV Hypoglycemia 03/24/18 18:00 04/23/18 17:59 Dextrose (Dextrose 50%) 50 ml STAT PRN IV Hypoglycemia 03/24/18 18:00 04/23/18 17:59 Docusate Sodium (Colace) 100 mg TID ORAL 03/22/18 13:00 04/21/18 08:59 03/25/18 09:26 Fish Oil (Fish Oil) 1,000 mg BEFORE BREAKFAST ORAL 03/24/18 06:30 04/23/18 06:29 03/24/18 05:58 Heparin Sodium (Porcine) (Heparin 5000 units/ml) 5,000 units EVERY 12 HOURS SUBQ 03/22/18 09:00 04/21/18 08:59 03/25/18 09:28 Insulin Aspart (NovoLOG) BEFORE MEALS AND HS SUBQ 03/24/18 21:00 04/23/18 20:59 03/25/18 11:51 Lansoprazole (Prevacid) 30 mg DAILY ORAL 03/23/18 09:00 04/22/18 08:59 03/25/18 09:26 Nateglinide (Starlix) 120 mg TIAC ORAL 03/25/18 11:30 04/21/18 16:29 03/25/18 11:46 Ondansetron HCl (Zofran) 4 mg Q6H PRN IVP Nausea & Vomiting 03/22/18 07:45 04/21/18 07:44 Polyethylene Glycol (Miralax) 17 gm HSPRN PRN ORAL Constipation 03/22/18 07:45 04/21/18 07:44 Sodium Chloride 1,000 ml @ 75 mls/hr [id number] IV 03/25/18 09:30 04/21/18 09:29 03/25/18 09:30 Tamsulosin HCl (Flomax) 0.4 mg BID ORAL 03/24/18 13:00 04/21/18 20:59 03/25/18 09:26 Allergies: Coded Allergies: No Known Allergies (Unverified , 03/22/18) ROS Limited/Unobtainable: No Constitutional: Reports: no symptoms HEENT: Reports: no symptoms Cardiovascular: Reports: no symptoms Respiratory: Reports: no symptoms Gastrointestinal/Abdominal: Reports: no symptoms Genitourinary: Reports: no symptoms Neurologic/Psychiatric: Reports: no symptoms Subjective 57 YO M admitted with fatigue and anorexia. Now acute renal failure. Cover for Int Ari-Dr Orozco Objective Last Vital Signs Date Time Temp Pulse Resp B/P (MAP) Pulse Ox O2 Delivery O2 Flow Rate FiO2 03/25/18 12:00 98.0 97 20 135/95 (108) 95 98.0 03/25/18 09:00 Room Air Laboratory Tests Test 03/25/18 03:12 03/25/18 04:45 Urine Eosinophils None seen White Blood Count 11.9 K/UL (4.8-10.8) H Red Blood Count 3.82 M/UL (4.70-6.10) L Hemoglobin 11.8 G/DL (14.2-18.0) L Hematocrit 34.6 % (42.0-52.0) L Mean Corpuscular Volume 90 FL (80-99) Mean Corpuscular Hemoglobin 31.0 PG (27.0-31.0) Mean Corpuscular Hemoglobin Concent 34.2 G/DL (32.0-36.0) Red Cell Distribution Width 11.6 % (11.6-14.8) Platelet Count 307 K/UL (150-450) Mean Platelet Volume 7.7 FL (6.5-10.1) Neutrophils (%) (Auto) 81.4 % (45.0-75.0) H Lymphocytes (%) (Auto) 12.3 % (20.0-45.0) L Monocytes (%) (Auto) 5.8 % (1.0-10.0) Eosinophils (%) (Auto) 0.0 % (0.0-3.0) Basophils (%) (Auto) 0.5 % (0.0-2.0) Sodium Level 134 MMOL/L (136-145) L Potassium Level 3.7 MMOL/L (3.5-5.1) Chloride Level 102 MMOL/L (98-107) Carbon Dioxide Level 22 MMOL/L (21-32) Anion Gap 10 mmol/L (5-15) Blood Urea Nitrogen 64 mg/dL (7-18) H Creatinine 4.5 MG/DL (0.55-1.30) H Estimat Glomerular Filtration Rate 16.4 mL/min (>60) Glucose Level 159 MG/DL (74-106) H Uric Acid 9.6 MG/DL (2.6-7.2) H Calcium Level 8.5 MG/DL (8.5-10.1) Phosphorus Level 3.9 MG/DL (2.5-4.9) Magnesium Level 2.1 MG/DL (1.8-2.4) Total Bilirubin 0.5 MG/DL (0.2-1.0) Gamma Glutamyl Transpeptidase 115 U/L (5-85) H Aspartate Amino Transf (AST/SGOT) 150 U/L (15-37) H Alanine Aminotransferase (ALT/SGPT) 184 U/L (12-78) H Alkaline Phosphatase 114 U/L (46-116) Total Creatine Kinase 111 U/L (26-308) Total Protein 7.2 G/DL (6.4-8.2) Albumin 2.4 G/DL (3.4-5.0) L Globulin 4.8 g/dL Albumin/Globulin Ratio 0.5 (1.0-2.7) L Microbiology Date/Time Source Procedure Growth Status 03/23/18 12:06 Stool Clostridium difficile Toxin Assay - Final Complete 03/24/18 13:45 Urine,Clean Catch Urine Culture - Preliminary Gram Positive Cocci Resulted Intake and Output 03/24/18 03/25/18 19:00 07:00 Intake Total 500 ml 600 ml Output Total 800 ml Balance -300 ml 600 ml Intake Oral 500 ml IV Total 600 ml Output Urine Total 800 ml # Voids 2 3 Objective General Appearance: WD/WN, no apparent distress, alert EENT: PERRL/EOMI, normal ENT inspection Neck: non-tender, normal alignment, supple, normal inspection Cardiovascular: normal peripheral pulses, normal rate, regular rhythm, no gallop/murmur, no JVD Respiratory/Chest: chest wall non-tender, lungs clear, normal breath sounds, no respiratory distress, no accessory muscle use Abdomen: normal bowel sounds, non tender, soft, no organomegaly, no mass Extremities: normal range of motion, non-tender Neurologic: educational aide II-XII grossly normal, no motor/sensory deficits Skin: normal pigmentation, warm/dry Assessment/Plan Problem List: (1) Fatigue (2) Anorexia (3) Accelerated hypertension Assessment & Plan: Continue norvasc (4) Hypercholesteremia (5) Cardiomyopathy due to hypertension Assessment & Plan: Await echocardiogram. See cardiology note. (6) Acute renal failure (ARF) Assessment & Plan: Improving; Last Hemodialysis 03/23/18; next 03/25/18-see nephrology note (7) Diabetes type 2, uncontrolled Assessment & Plan: Continue starlix. Start novolog sliding scale. Status: progressing Yunior Zayas MD Mar 25, 2018 13:58
--- NOTE | 2018-03-25 14:25 | Cardiology Progress Note ---
Assessment/Plan Status: stable Assessment/Plan Acute Renal Failure DM as Hgb A1c Elevated Obesity HTN abnormal LFTs AMS Urinary retention 1) Echocardiogram reviewed- evidence of hypertensive heart disease, continue blood pressure control. 2) Allopurinol for elevated uric acid 3) outpatient ischemia evaluation due to multiple cardiac risk factors 4) Norvasc for hypertension, add clonidine or hydralazine if not controlled 5) Aspirin 6) Lipitor and fish oil 7) Repeat lipid panel in 6 weeks 8) Maintain hemodialysis Subjective Cardiovascular: Reports: no symptoms Respiratory: Reports: no symptoms Gastrointestinal/Abdominal: Reports: no symptoms Genitourinary: Reports: no symptoms Subjective No acute events, no complaints, vitals stable, BP controlled, no side effects of medications, HD last night, plan again for tomorrow Echo with LV from HTN, normal function and PA pressures. Objective Last 24 Hour Vital Signs Date Time Temp Pulse Resp B/P (MAP) Pulse Ox O2 Delivery O2 Flow Rate FiO2 03/25/18 12:00 98.0 97 20 135/95 (108) 95 98.0 03/25/18 09:27 98 140/90 03/25/18 09:00 Room Air 03/25/18 08:00 97.7 98 20 140/90 (107) 95 97.7 03/25/18 04:00 98.3 90 19 150/90 (110) 94 98.3 03/25/18 00:00 97.7 96 18 139/90 (106) 96 97.7 03/24/18 21:00 Room Air 03/24/18 20:00 98.3 86 19 141/77 (98) 94 98.3 03/24/18 18:02 97 130/76 03/24/18 15:58 97.8 97 20 130/76 (94) 95 97.8 General Appearance: no apparent distress EENT: PERRL/EOMI Neck: non-tender Rhythm: NSR Cardiovascular: normal peripheral pulses Respiratory/Chest: chest wall non-tender Abdomen: normal bowel sounds Extremities: normal range of motion Neurologic: clinical allergist II-XII grossly normal Intake and Output 03/24/18 03/25/18 19:00 07:00 Intake Total 500 ml 600 ml Output Total 800 ml Balance -300 ml 600 ml Intake Oral 500 ml IV Total 600 ml Output Urine Total 800 ml # Voids 2 3 Laboratory Tests Test 03/25/18 03:12 03/25/18 04:45 Urine Eosinophils None seen White Blood Count 11.9 K/UL (4.8-10.8) H Red Blood Count 3.82 M/UL (4.70-6.10) L Hemoglobin 11.8 G/DL (14.2-18.0) L Hematocrit 34.6 % (42.0-52.0) L Mean Corpuscular Volume 90 FL (80-99) Mean Corpuscular Hemoglobin 31.0 PG (27.0-31.0) Mean Corpuscular Hemoglobin Concent 34.2 G/DL (32.0-36.0) Red Cell Distribution Width 11.6 % (11.6-14.8) Platelet Count 307 K/UL (150-450) Mean Platelet Volume 7.7 FL (6.5-10.1) Neutrophils (%) (Auto) 81.4 % (45.0-75.0) H Lymphocytes (%) (Auto) 12.3 % (20.0-45.0) L Monocytes (%) (Auto) 5.8 % (1.0-10.0) Eosinophils (%) (Auto) 0.0 % (0.0-3.0) Basophils (%) (Auto) 0.5 % (0.0-2.0) Sodium Level 134 MMOL/L (136-145) L Potassium Level 3.7 MMOL/L (3.5-5.1) Chloride Level 102 MMOL/L (98-107) Carbon Dioxide Level 22 MMOL/L (21-32) Anion Gap 10 mmol/L (5-15) Blood Urea Nitrogen 64 mg/dL (7-18) H Creatinine 4.5 MG/DL (0.55-1.30) H Estimat Glomerular Filtration Rate 16.4 mL/min (>60) Glucose Level 159 MG/DL (74-106) H Uric Acid 9.6 MG/DL (2.6-7.2) H Calcium Level 8.5 MG/DL (8.5-10.1) Phosphorus Level 3.9 MG/DL (2.5-4.9) Magnesium Level 2.1 MG/DL (1.8-2.4) Total Bilirubin 0.5 MG/DL (0.2-1.0) Gamma Glutamyl Transpeptidase 115 U/L (5-85) H Aspartate Amino Transf (AST/SGOT) 150 U/L (15-37) H Alanine Aminotransferase (ALT/SGPT) 184 U/L (12-78) H Alkaline Phosphatase 114 U/L (46-116) Total Creatine Kinase 111 U/L (26-308) Total Protein 7.2 G/DL (6.4-8.2) Albumin 2.4 G/DL (3.4-5.0) L Globulin 4.8 g/dL Albumin/Globulin Ratio 0.5 (1.0-2.7) L Microbiology Date/Time Source Procedure Growth Status 03/23/18 12:06 Stool Clostridium difficile Toxin Assay - Final Complete 03/24/18 13:45 Urine,Clean Catch Urine Culture - Preliminary Gram Positive Cocci Resulted Vijay Singer M.D. Mar 25, 2018 14:25
[2018-03-25 16:00] VITALS: BP 142/90
--- NOTE | 2018-03-25 19:40 | Pulmonology Progress Note ---
Assessment/Plan Problems: (1) Acute renal failure (ARF) (2) Cardiomyopathy due to hypertension (3) Accelerated hypertension (4) Anorexia (5) Obesity (BMI 30-39.9) (6) Diabetes type 2, uncontrolled Assessment/Plan sliding scale diabetic diet hd prn diabetic diet symptomatic treatment dc planning soon d/w daughter at the bed site extensively Subjective ROS Limited/Unobtainable: No Allergies: Coded Allergies: No Known Allergies (Unverified , 03/22/18) Objective Last 24 Hour Vital Signs Date Time Temp Pulse Resp B/P (MAP) Pulse Ox O2 Delivery O2 Flow Rate FiO2 03/25/18 18:00 190/103 03/25/18 17:32 98 142/90 03/25/18 16:30 Room Air 03/25/18 16:00 98.1 98 20 142/90 (107) 96 98.1 03/25/18 12:00 98.0 97 20 135/95 (108) 95 98.0 03/25/18 09:27 98 140/90 03/25/18 09:00 Room Air 03/25/18 08:00 97.7 98 20 140/90 (107) 95 97.7 03/25/18 04:00 98.3 90 19 150/90 (110) 94 98.3 03/25/18 00:00 97.7 96 18 139/90 (106) 96 97.7 03/24/18 21:00 Room Air 03/24/18 20:00 98.3 86 19 141/77 (98) 94 98.3 Intake and Output 03/24/18 03/25/18 19:00 07:00 Intake Total 500 ml 600 ml Output Total 800 ml Balance -300 ml 600 ml Intake Oral 500 ml IV Total 600 ml Output Urine Total 800 ml # Voids 2 3 Objective General Appearance: WD/WN HEENT: normocephalic, atraumatic Respiratory/Chest: chest wall non-tender, lungs clear Breasts: no masses Cardiovascular: normal peripheral pulses, normal rate Abdomen: normal bowel sounds, no organomegaly Neurologic/Psychiatric: practical nurse II-XII grossly normal Lymphatic: no neck adenopathy Microbiology Date/Time Source Procedure Growth Status 03/23/18 12:06 Stool Clostridium difficile Toxin Assay - Final Complete 03/24/18 13:45 Urine,Clean Catch Urine Culture - Preliminary Gram Positive Cocci Resulted Laboratory Tests 03/25/18 03:12: Urine Eosinophils None seen 03/25/18 04:45: White Blood Count 11.9H, Red Blood Count 3.82L, Hemoglobin 11.8L, Hematocrit 34.6L, Mean Corpuscular Volume 90, Mean Corpuscular Hemoglobin 31.0, Mean Corpuscular Hemoglobin Concent 34.2, Red Cell Distribution Width 11.6, Platelet Count 307, Mean Platelet Volume 7.7, Neutrophils (%) (Auto) 81.4H, Lymphocytes ( %) (Auto) 12.3L, Monocytes (%) (Auto) 5.8, Eosinophils (%) (Auto) 0.0, Basophils (%) (Auto) 0.5, Sodium Level 134L, Potassium Level 3.7, Chloride Level 102, Carbon Dioxide Level 22, Anion Gap 10, Blood Urea Nitrogen 64H, Creatinine 4.5H, Estimat Glomerular Filtration Rate 16.4, Glucose Level 159H, Uric Acid 9.6H, Calcium Level 8.5, Phosphorus Level 3.9, Magnesium Level 2.1, Total Bilirubin 0.5, Gamma Glutamyl Transpeptidase 115H, Aspartate Amino Transf (AST/SGOT) 150H, Alanine Aminotransferase (ALT/SGPT) 184H, Alkaline Phosphatase 114, Total Creatine Kinase 111, Total Protein 7.2, Albumin 2.4L, Globulin 4.8, Albumin/Globulin Ratio 0.5L Current Medications Medications (Trade) Dose Ordered Sig/Swetha Route PRN Reason Start Time Stop Time Status Last Admin Dose Admin Acetaminophen (Tylenol) 650 mg Q4H PRN ORAL Mild Pain (Pain Scale 1-3) 03/22/18 07:45 04/21/18 07:44 Allopurinol (Zyloprim) 200 mg DAILY ORAL 03/25/18 09:00 04/24/18 08:59 03/25/18 09:26 Amlodipine Besylate (Norvasc) 5 mg BID ORAL 03/22/18 18:00 04/21/18 08:59 03/25/18 09:27 Aspirin (ASA) 325 mg DAILY ORAL 03/24/18 09:00 04/23/18 08:59 03/25/18 09:27 Atorvastatin Calcium (Lipitor) 40 mg BEDTIME ORAL 03/24/18 21:00 04/22/18 20:59 03/24/18 21:38 Clonidine HCl (Catapres Tab) 0.1 mg Q4H PRN ORAL SBP > 165 03/22/18 15:45 04/21/18 07:44 03/25/18 18:00 Dextrose (Dextrose 50%) 25 ml STAT PRN IV Hypoglycemia 03/24/18 18:00 04/23/18 17:59 Dextrose (Dextrose 50%) 50 ml STAT PRN IV Hypoglycemia 03/24/18 18:00 04/23/18 17:59 Docusate Sodium (Colace) 100 mg TID ORAL 03/22/18 13:00 04/21/18 08:59 03/25/18 17:29 Fish Oil (Fish Oil) 1,000 mg BEFORE BREAKFAST ORAL 03/24/18 06:30 04/23/18 06:29 03/24/18 05:58 Heparin Sodium (Porcine) (Heparin 5000 units/ml) 5,000 units EVERY 12 HOURS SUBQ 03/22/18 09:00 04/21/18 08:59 03/25/18 09:28 Insulin Aspart (NovoLOG) BEFORE MEALS AND HS SUBQ 03/24/18 21:00 04/23/18 20:59 03/25/18 11:51 Lansoprazole (Prevacid) 30 mg DAILY ORAL 03/23/18 09:00 04/22/18 08:59 03/25/18 09:26 Nateglinide (Starlix) 120 mg TIAC ORAL 03/25/18 11:30 04/21/18 16:29 03/25/18 17:28 Ondansetron HCl (Zofran) 4 mg Q6H PRN IVP Nausea & Vomiting 03/22/18 07:45 04/21/18 07:44 Polyethylene Glycol (Miralax) 17 gm HSPRN PRN ORAL Constipation 03/22/18 07:45 04/21/18 07:44 Sodium Chloride 1,000 ml @ 75 mls/hr [id number] IV 03/25/18 09:30 04/21/18 09:29 03/25/18 09:30 Tamsulosin HCl (Flomax) 0.4 mg BID ORAL 03/24/18 13:00 04/21/18 20:59 03/25/18 17:29 Ethan Barnett MD Mar 25, 2018 19:40
[2018-03-25] MEDS: Atorvastatin 80mg tab ORAL SCH (20:53)
[2018-03-25 21:00] VITALS: BP 139/90
[2018-03-26] VITALS: BP 127/84
[2018-03-26 04:00] VITALS: BP 133/86
[2018-03-26] MEDS: Nateglinide 60mg tab ORAL SCH ×3 (05:51→16:36)
[2018-03-26] MEDS: NovoLOG Insulin Flexpen SUBQ SCH ×4 (05:53→22:32)
[2018-03-26 06:14] LABS: BASOPHILS % (AUTO) 0.5 % (0.0-2.0); HEMATOCRIT 31.9 % (42.0-52.0); LYMPHOCYTES % (AUTO) 17.6 % (20.0-45.0); MEAN CORPUSCULAR VOLUME 90 FL (80-99); MONOCYTES % (AUTO) 6.9 % (1.0-10.0); PLATELET COUNT 284 K/UL (150-450); RED BLOOD COUNT 3.52 M/UL (4.70-6.10); RED CELL DISTRIBUTION WIDTH 11.7 % (11.6-14.8); WHITE BLOOD COUNT 13.1 K/UL (4.8-10.8)
[2018-03-26 06:33] LABS: ALANINE AMINOTRANSFERASE 256 U/L (12-78); ALBUMIN 2.4 G/DL (3.4-5.0); ALBUMIN/GLOBULIN RATIO 0.5 (1.0-2.7); ALKALINE PHOSPHATASE 115 U/L (46-116); ANION GAP 9 mmol/L (5-15); ASPARTATE AMINO TRANSFERASE 193 U/L (15-37); BILIRUBIN,TOTAL 0.5 MG/DL (0.2-1.0); BLOOD UREA NITROGEN 42 mg/dL (7-18); CARBON DIOXIDE 28 MMOL/L (21-32); CHLORIDE 102 MMOL/L (98-107); CREATINE KINASE 77 U/L (26-308); CREATININE 2.8 MG/DL (0.55-1.30); GAMMA GLUTAMYL TRANSPEPTIDASE 128 U/L (5-85); PHOSPHORUS 3.8 MG/DL (2.5-4.9); POTASSIUM 3.9 MMOL/L (3.5-5.1); SODIUM 139 MMOL/L (136-145)
[2018-03-26 08:00] VITALS: BP 129/88
[2018-03-26] MEDS: Allopurinol 100mg Tab ORAL SCH (08:29)
[2018-03-26] MEDS: Docusate 100mg cap ORAL SCH ×3 (08:29→16:37)
[2018-03-26] MEDS: Tamsulosin 0.4mg cap ORAL SCH ×2 (08:30→16:36)
[2018-03-26] MEDS: Heparin 5000 units/ml inj SUBQ SCH ×2 (08:34→22:31)
--- NOTE | 2018-03-26 11:05 | Nephrology Progress Note ---
Assessment/Plan Problem List: (1) Acute renal failure (ARF) (2) Hypertension (3) Diabetes type 2, uncontrolled (4) Elevated lipids (5) Obesity (BMI 30-39.9) Assessment Acute Renal Failure seems resolving DM as Hgb A1c Elevated Obesity HTN abnormal LFTs ? Fatty infilt High Uric High Cholestrol Plan stop Lipitor as LFTs rising Voiding well. Kidney ROWAN no hydro 2D Echo noted Urine studies Hydrate Keep BP and BS in check starlix to 120 mg TID Flomax Hepatitis panel Dialysis - Agreed first done 03/23 nexr 03/25 allopurinol started discussed with If Cr stable or lower will DC in am Subjective ROS Limited/Unobtainable: No Constitutional: Reports: other - stronger Objective Objective Last 24 Hour Vital Signs Date Time Temp Pulse Resp B/P (MAP) Pulse Ox O2 Delivery O2 Flow Rate FiO2 03/26/18 09:00 Room Air 03/26/18 08:30 91 129/88 03/26/18 08:00 96.6 91 18 129/88 (102) 95 96.6 03/26/18 04:00 98.2 90 17 133/86 (102) 94 98.2 03/26/18 00:00 98.4 93 18 127/84 (98) 92 98.4 03/25/18 21:00 Room Air 03/25/18 21:00 97.7 91 19 139/90 (106) 95 97.7 03/25/18 20:02 Room Air 03/25/18 18:00 190/103 03/25/18 17:32 98 142/90 03/25/18 16:30 Room Air 03/25/18 16:00 98.1 98 20 142/90 (107) 96 98.1 03/25/18 12:00 98.0 97 20 135/95 (108) 95 98.0 Intake and Output 03/25/18 03/26/18 19:00 07:00 Intake Total 725 ml 1825 ml Output Total 0 ml Balance 725 ml 1825 ml Intake Oral 1000 ml IV Total 725 ml 825 ml Hemodialysis UF 0 ml # Voids 4 4 Laboratory Tests 03/26/18 05:00: White Blood Count 13.1H, Red Blood Count 3.52L, Hemoglobin 11.0L, Hematocrit 31.9L, Mean Corpuscular Volume 90, Mean Corpuscular Hemoglobin 31.2H, Mean Corpuscular Hemoglobin Concent 34.4, Red Cell Distribution Width 11.7, Platelet Count 284, Mean Platelet Volume 7.4, Neutrophils (%) (Auto) 75.0, Lymphocytes (% ) (Auto) 17.6L, Monocytes (%) (Auto) 6.9, Eosinophils (%) (Auto) 0.0, Basophils (%) (Auto) 0.5, Sodium Level 139, Potassium Level 3.9, Chloride Level 102, Carbon Dioxide Level 28, Anion Gap 9, Blood Urea Nitrogen 42H, Creatinine 2.8H, Estimat Glomerular Filtration Rate 28.2, Glucose Level 144H, Uric Acid 7.3H, Calcium Level 8.0L, Phosphorus Level 3.8, Magnesium Level 1.6L, Total Bilirubin 0.5, Gamma Glutamyl Transpeptidase 128H, Aspartate Amino Transf (AST/SGOT) 193H , Alanine Aminotransferase (ALT/SGPT) 256H, Alkaline Phosphatase 115, Total Creatine Kinase 77, Total Protein 6.8, Albumin 2.4L, Globulin 4.4, Albumin/ Globulin Ratio 0.5L Height (Feet): 5 Height (Inches): 11.00 Weight (Pounds): 259 BRENNAN ASENCIO Mar 26, 2018 11:05
[2018-03-26 11:51] VITALS: BP 136/84
--- NOTE | 2018-03-26 13:40 | Cardiology Progress Note ---
Assessment/Plan Status: doing well, stable, progressing, tolerating diet, ambulating well Assessment/Plan Acute Renal Failure DM as Hgb A1c Elevated Obesity HTN abnormal LFTs AMS Urinary retention 1) Echocardiogram reviewed- evidence of hypertensive heart disease, continue blood pressure control. 2) Allopurinol for elevated uric acid 3) outpatient ischemia evaluation due to multiple cardiac risk factors 4) Norvasc for hypertension, add clonidine or hydralazine if not controlled 5) Aspirin 6) Lipitor and fish oil 7) Repeat lipid panel in 6 weeks 8) Maintain hemodialysis 9) Dispo planning Subjective Cardiovascular: Reports: no symptoms Respiratory: Reports: no symptoms Gastrointestinal/Abdominal: Reports: no symptoms Genitourinary: Reports: no symptoms Subjective No acute events, no complaints, vitals stable, BP controlled, no side effects of medications, HD planned for today, creatinine improved Echo with LV from HTN, normal function and PA pressures. Objective Last 24 Hour Vital Signs Date Time Temp Pulse Resp B/P (MAP) Pulse Ox O2 Delivery O2 Flow Rate FiO2 03/26/18 11:51 97.2 84 18 136/84 (101) 95 97.2 03/26/18 09:00 Room Air 03/26/18 08:30 91 129/88 03/26/18 08:00 96.6 91 18 129/88 (102) 95 96.6 03/26/18 04:00 98.2 90 17 133/86 (102) 94 98.2 03/26/18 00:00 98.4 93 18 127/84 (98) 92 98.4 03/25/18 21:00 Room Air 03/25/18 21:00 97.7 91 19 139/90 (106) 95 97.7 03/25/18 20:02 Room Air 03/25/18 18:00 190/103 03/25/18 17:32 98 142/90 03/25/18 16:30 Room Air 03/25/18 16:00 98.1 98 20 142/90 (107) 96 98.1 General Appearance: no apparent distress EENT: PERRL/EOMI, normal ENT inspection Neck: non-tender Rhythm: SB Cardiovascular: normal peripheral pulses Respiratory/Chest: chest wall non-tender Extremities: normal range of motion Neurologic: charge weigher II-XII grossly normal Intake and Output 03/25/18 03/26/18 19:00 07:00 Intake Total 725 ml 1825 ml Output Total 0 ml Balance 725 ml 1825 ml Intake Oral 1000 ml IV Total 725 ml 825 ml Hemodialysis UF 0 ml # Voids 4 4 Laboratory Tests Test 03/26/18 05:00 White Blood Count 13.1 K/UL (4.8-10.8) H Red Blood Count 3.52 M/UL (4.70-6.10) L Hemoglobin 11.0 G/DL (14.2-18.0) L Hematocrit 31.9 % (42.0-52.0) L Mean Corpuscular Volume 90 FL (80-99) Mean Corpuscular Hemoglobin 31.2 PG (27.0-31.0) H Mean Corpuscular Hemoglobin Concent 34.4 G/DL (32.0-36.0) Red Cell Distribution Width 11.7 % (11.6-14.8) Platelet Count 284 K/UL (150-450) Mean Platelet Volume 7.4 FL (6.5-10.1) Neutrophils (%) (Auto) 75.0 % (45.0-75.0) Lymphocytes (%) (Auto) 17.6 % (20.0-45.0) L Monocytes (%) (Auto) 6.9 % (1.0-10.0) Eosinophils (%) (Auto) 0.0 % (0.0-3.0) Basophils (%) (Auto) 0.5 % (0.0-2.0) Sodium Level 139 MMOL/L (136-145) Potassium Level 3.9 MMOL/L (3.5-5.1) Chloride Level 102 MMOL/L (98-107) Carbon Dioxide Level 28 MMOL/L (21-32) Anion Gap 9 mmol/L (5-15) Blood Urea Nitrogen 42 mg/dL (7-18) H Creatinine 2.8 MG/DL (0.55-1.30) H Estimat Glomerular Filtration Rate 28.2 mL/min (>60) Glucose Level 144 MG/DL (74-106) H Uric Acid 7.3 MG/DL (2.6-7.2) H Calcium Level 8.0 MG/DL (8.5-10.1) L Phosphorus Level 3.8 MG/DL (2.5-4.9) Magnesium Level 1.6 MG/DL (1.8-2.4) L Total Bilirubin 0.5 MG/DL (0.2-1.0) Gamma Glutamyl Transpeptidase 128 U/L (5-85) H Aspartate Amino Transf (AST/SGOT) 193 U/L (15-37) H Alanine Aminotransferase (ALT/SGPT) 256 U/L (12-78) H Alkaline Phosphatase 115 U/L (46-116) Total Creatine Kinase 77 U/L (26-308) Total Protein 6.8 G/DL (6.4-8.2) Albumin 2.4 G/DL (3.4-5.0) L Globulin 4.4 g/dL Albumin/Globulin Ratio 0.5 (1.0-2.7) L Microbiology Date/Time Source Procedure Growth Status 03/24/18 13:45 Urine,Clean Catch Urine Culture - Preliminary Gram Positive Cocci Resulted Vijay Singer M.D. Mar 26, 2018 13:39
--- NOTE | 2018-03-26 14:25 | Internal Med Progress Note ---
Subjective Date of Service: Mar 26, 2018 Physician Name Yunior Zayas Attending Physician Murali Orozco MD Current Medications Medications (Trade) Dose Ordered Sig/Swetha Route PRN Reason Start Time Stop Time Status Last Admin Dose Admin Acetaminophen (Tylenol) 650 mg Q4H PRN ORAL Mild Pain (Pain Scale 1-3) 03/22/18 07:45 04/21/18 07:44 Allopurinol (Zyloprim) 200 mg DAILY ORAL 03/25/18 09:00 04/24/18 08:59 03/26/18 08:29 Amlodipine Besylate (Norvasc) 5 mg BID ORAL 03/22/18 18:00 04/21/18 08:59 03/26/18 08:30 Aspirin (ASA) 325 mg DAILY ORAL 03/24/18 09:00 04/23/18 08:59 03/26/18 08:30 Clonidine HCl (Catapres Tab) 0.1 mg Q4H PRN ORAL SBP > 165 03/22/18 15:45 04/21/18 07:44 03/25/18 18:00 Dextrose (Dextrose 50%) 25 ml STAT PRN IV Hypoglycemia 03/24/18 18:00 04/23/18 17:59 Dextrose (Dextrose 50%) 50 ml STAT PRN IV Hypoglycemia 03/24/18 18:00 04/23/18 17:59 Docusate Sodium (Colace) 100 mg TID ORAL 03/22/18 13:00 04/21/18 08:59 03/26/18 08:29 Fish Oil (Fish Oil) 1,000 mg BID ORAL 03/26/18 18:00 04/23/18 06:29 Heparin Sodium (Porcine) (Heparin 5000 units/ml) 5,000 units EVERY 12 HOURS SUBQ 03/22/18 09:00 04/21/18 08:59 03/26/18 08:34 Insulin Aspart (NovoLOG) BEFORE MEALS AND HS SUBQ 03/24/18 21:00 04/23/18 20:59 03/26/18 11:24 Nateglinide (Starlix) 120 mg TIAC ORAL 03/25/18 11:30 04/21/18 16:29 03/26/18 11:16 Ondansetron HCl (Zofran) 4 mg Q6H PRN IVP Nausea & Vomiting 03/22/18 07:45 04/21/18 07:44 Pantoprazole (Protonix) 40 mg DAILY ORAL 03/27/18 09:00 04/26/18 08:59 Polyethylene Glycol (Miralax) 17 gm HSPRN PRN ORAL Constipation 03/22/18 07:45 04/21/18 07:44 Sodium Chloride 1,000 ml @ 75 mls/hr [id number] IV 03/25/18 09:30 04/21/18 09:29 03/26/18 12:10 Tamsulosin HCl (Flomax) 0.4 mg BID ORAL 03/24/18 13:00 04/21/18 20:59 03/26/18 08:30 Allergies: Coded Allergies: No Known Allergies (Unverified , 03/22/18) ROS Limited/Unobtainable: No Constitutional: Reports: no symptoms HEENT: Reports: no symptoms Cardiovascular: Reports: no symptoms Respiratory: Reports: no symptoms Gastrointestinal/Abdominal: Reports: no symptoms Genitourinary: Reports: no symptoms Neurologic/Psychiatric: Reports: no symptoms Subjective 57 YO M admitted with fatigue and anorexia. Now acute renal failure. Cover for Int Ari-Dr Orozco Objective Last Vital Signs Date Time Temp Pulse Resp B/P (MAP) Pulse Ox O2 Delivery O2 Flow Rate FiO2 03/26/18 11:51 97.2 84 18 136/84 (101) 95 97.2 03/26/18 09:00 Room Air Laboratory Tests Test 03/26/18 05:00 White Blood Count 13.1 K/UL (4.8-10.8) H Red Blood Count 3.52 M/UL (4.70-6.10) L Hemoglobin 11.0 G/DL (14.2-18.0) L Hematocrit 31.9 % (42.0-52.0) L Mean Corpuscular Volume 90 FL (80-99) Mean Corpuscular Hemoglobin 31.2 PG (27.0-31.0) H Mean Corpuscular Hemoglobin Concent 34.4 G/DL (32.0-36.0) Red Cell Distribution Width 11.7 % (11.6-14.8) Platelet Count 284 K/UL (150-450) Mean Platelet Volume 7.4 FL (6.5-10.1) Neutrophils (%) (Auto) 75.0 % (45.0-75.0) Lymphocytes (%) (Auto) 17.6 % (20.0-45.0) L Monocytes (%) (Auto) 6.9 % (1.0-10.0) Eosinophils (%) (Auto) 0.0 % (0.0-3.0) Basophils (%) (Auto) 0.5 % (0.0-2.0) Sodium Level 139 MMOL/L (136-145) Potassium Level 3.9 MMOL/L (3.5-5.1) Chloride Level 102 MMOL/L (98-107) Carbon Dioxide Level 28 MMOL/L (21-32) Anion Gap 9 mmol/L (5-15) Blood Urea Nitrogen 42 mg/dL (7-18) H Creatinine 2.8 MG/DL (0.55-1.30) H Estimat Glomerular Filtration Rate 28.2 mL/min (>60) Glucose Level 144 MG/DL (74-106) H Uric Acid 7.3 MG/DL (2.6-7.2) H Calcium Level 8.0 MG/DL (8.5-10.1) L Phosphorus Level 3.8 MG/DL (2.5-4.9) Magnesium Level 1.6 MG/DL (1.8-2.4) L Total Bilirubin 0.5 MG/DL (0.2-1.0) Gamma Glutamyl Transpeptidase 128 U/L (5-85) H Aspartate Amino Transf (AST/SGOT) 193 U/L (15-37) H Alanine Aminotransferase (ALT/SGPT) 256 U/L (12-78) H Alkaline Phosphatase 115 U/L (46-116) Total Creatine Kinase 77 U/L (26-308) Total Protein 6.8 G/DL (6.4-8.2) Albumin 2.4 G/DL (3.4-5.0) L Globulin 4.4 g/dL Albumin/Globulin Ratio 0.5 (1.0-2.7) L Microbiology Date/Time Source Procedure Growth Status 03/24/18 13:45 Urine,Clean Catch Urine Culture - Preliminary Gram Positive Cocci Resulted Intake and Output 03/25/18 03/26/18 19:00 07:00 Intake Total 725 ml 1825 ml Output Total 0 ml Balance 725 ml 1825 ml Intake Oral 1000 ml IV Total 725 ml 825 ml Hemodialysis UF 0 ml # Voids 4 4 Objective General Appearance: WD/WN, no apparent distress, alert EENT: PERRL/EOMI, normal ENT inspection Neck: non-tender, normal alignment, supple, normal inspection Cardiovascular: normal peripheral pulses, normal rate, regular rhythm, no gallop/murmur, no JVD Respiratory/Chest: chest wall non-tender, lungs clear, normal breath sounds, no respiratory distress, no accessory muscle use Abdomen: normal bowel sounds, non tender, soft, no organomegaly, no mass Extremities: normal range of motion, non-tender 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 See cardiology note. (6) Acute renal failure (ARF) Assessment & Plan: Improving; S/P Hemodialysis 03/23/18 and 03/25/18-see nephrology note (7) Diabetes type 2, uncontrolled Assessment & Plan: Continue starlix. Start novolog sliding scale. Status: progressing Yunior Zayas MD Mar 26, 2018 14:25
[2018-03-26 16:00] VITALS: BP 129/83
--- NOTE | 2018-03-26 18:14 | Pulmonology Progress Note ---
Assessment/Plan Problems: (1) Acute renal failure (ARF) (2) Cardiomyopathy due to hypertension (3) Accelerated hypertension (4) Anorexia (5) Obesity (BMI 30-39.9) (6) Diabetes type 2, uncontrolled Assessment/Plan sliding scale diabetic diet hd prn diabetic diet symptomatic treatment dc planning soon all reviewed d/w daughter at the bed site extensively Subjective ROS Limited/Unobtainable: No Allergies: Coded Allergies: No Known Allergies (Unverified , 03/22/18) Objective Last 24 Hour Vital Signs Date Time Temp Pulse Resp B/P (MAP) Pulse Ox O2 Delivery O2 Flow Rate FiO2 03/26/18 16:36 83 129/83 03/26/18 16:00 96.4 83 18 129/83 (98) 95 96.4 03/26/18 11:51 97.2 84 18 136/84 (101) 95 97.2 03/26/18 09:00 Room Air 03/26/18 08:30 91 129/88 03/26/18 08:00 96.6 91 18 129/88 (102) 95 96.6 03/26/18 04:00 98.2 90 17 133/86 (102) 94 98.2 03/26/18 00:00 98.4 93 18 127/84 (98) 92 98.4 03/25/18 21:00 Room Air 03/25/18 21:00 97.7 91 19 139/90 (106) 95 97.7 03/25/18 20:02 Room Air Intake and Output 03/25/18 03/26/18 19:00 07:00 Intake Total 725 ml 1825 ml Output Total 0 ml Balance 725 ml 1825 ml Intake Oral 1000 ml IV Total 725 ml 825 ml Hemodialysis UF 0 ml # Voids 4 4 Objective General Appearance: WD/WN HEENT: normocephalic, atraumatic Respiratory/Chest: chest wall non-tender, lungs clear Breasts: no masses Cardiovascular: normal peripheral pulses, normal rate Abdomen: normal bowel sounds, no organomegaly 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 Lymphatic: no neck adenopathy Microbiology Date/Time Source Procedure Growth Status 03/24/18 13:45 Urine,Clean Catch Urine Culture - Preliminary Gram Positive Cocci Resulted Laboratory Tests 03/26/18 05:00: White Blood Count 13.1H, Red Blood Count 3.52L, Hemoglobin 11.0L, Hematocrit 31.9L, Mean Corpuscular Volume 90, Mean Corpuscular Hemoglobin 31.2H, Mean Corpuscular Hemoglobin Concent 34.4, Red Cell Distribution Width 11.7, Platelet Count 284, Mean Platelet Volume 7.4, Neutrophils (%) (Auto) 75.0, Lymphocytes (% ) (Auto) 17.6L, Monocytes (%) (Auto) 6.9, Eosinophils (%) (Auto) 0.0, Basophils (%) (Auto) 0.5, Sodium Level 139, Potassium Level 3.9, Chloride Level 102, Carbon Dioxide Level 28, Anion Gap 9, Blood Urea Nitrogen 42H, Creatinine 2.8H, Estimat Glomerular Filtration Rate 28.2, Glucose Level 144H, Uric Acid 7.3H, Calcium Level 8.0L, Phosphorus Level 3.8, Magnesium Level 1.6L, Total Bilirubin 0.5, Gamma Glutamyl Transpeptidase 128H, Aspartate Amino Transf (AST/SGOT) 193H , Alanine Aminotransferase (ALT/SGPT) 256H, Alkaline Phosphatase 115, Total Creatine Kinase 77, Total Protein 6.8, Albumin 2.4L, Globulin 4.4, Albumin/ Globulin Ratio 0.5L Current Medications Medications (Trade) Dose Ordered Sig/Swetha Route PRN Reason Start Time Stop Time Status Last Admin Dose Admin Acetaminophen (Tylenol) 650 mg Q4H PRN ORAL Mild Pain (Pain Scale 1-3) 03/22/18 07:45 04/21/18 07:44 Allopurinol (Zyloprim) 200 mg DAILY ORAL 03/25/18 09:00 04/24/18 08:59 03/26/18 08:29 Amlodipine Besylate (Norvasc) 5 mg BID ORAL 03/22/18 18:00 04/21/18 08:59 03/26/18 16:36 Aspirin (ASA) 325 mg DAILY ORAL 03/24/18 09:00 04/23/18 08:59 03/26/18 08:30 Clonidine HCl (Catapres Tab) 0.1 mg Q4H PRN ORAL SBP > 165 03/22/18 15:45 04/21/18 07:44 03/25/18 18:00 Dextrose (Dextrose 50%) 25 ml STAT PRN IV Hypoglycemia 7/6/18 18:00 04/23/18 17:59 Dextrose (Dextrose 50%) 50 ml STAT PRN IV Hypoglycemia 03/24/18 18:00 04/23/18 17:59 Docusate Sodium (Colace) 100 mg TID ORAL 03/22/18 13:00 04/21/18 08:59 03/26/18 16:37 Fish Oil (Fish Oil) 1,000 mg BID ORAL 03/26/18 18:00 04/23/18 06:29 Heparin Sodium (Porcine) (Heparin 5000 units/ml) 5,000 units EVERY 12 HOURS SUBQ 03/22/18 09:00 04/21/18 08:59 03/26/18 08:34 Insulin Aspart (NovoLOG) BEFORE MEALS AND HS SUBQ 03/24/18 21:00 04/23/18 20:59 03/26/18 11:24 Nateglinide (Starlix) 120 mg TIAC ORAL 03/25/18 11:30 04/21/18 16:29 03/26/18 16:36 Ondansetron HCl (Zofran) 4 mg Q6H PRN IVP Nausea & Vomiting 03/22/18 07:45 04/21/18 07:44 Pantoprazole (Protonix) 40 mg DAILY ORAL 03/27/18 09:00 04/26/18 08:59 Polyethylene Glycol (Miralax) 17 gm HSPRN PRN ORAL Constipation 03/22/18 07:45 04/21/18 07:44 Sodium Chloride 1,000 ml @ 75 mls/hr [id number] IV 03/25/18 09:30 04/21/18 09:29 03/26/18 12:10 Tamsulosin HCl (Flomax) 0.4 mg BID ORAL 03/24/18 13:00 04/21/18 20:59 03/26/18 16:36 Ethan Barnett MD Mar 26, 2018 18:14
[2018-03-26 20:00] VITALS: BP 138/94
--- NOTE | 2018-03-26 21:30 | Infectious Diseases Prog Note ---
Assessment/Plan Assessment/Plan Abx: Ceftriaxone x1 03/24 Assessment: Acute renal failure (?CKD)- started on HD 03/23 Electrolyte disturbances Leukocytosis (mild)- suspect likely reactive and possible PNA -CXR: Left lower lung consolidation, suspicious for pneumonia. -u/a no pyuria -Cdiff neg Elevated LFTS, improving -Abd US: Question of a nonobstructing mid zone right renal calculus. There is also a cortical cyst in this area. Echogenic liver parenchyma may reflect steatosis. No gallstones or other biliary pathology untreated HTN HLD Obesity HLD uncontrolled Dm2 Plan: -Start Ceftriaxone and Azithromycin #1/ for possible PNA; upon discharge can be transitioned to PO Levaquin 750mg q48hr -f/u cx -Monitor CBC/BMP, temperatures -Renal f/u Thank you for this consultation. Will continue to follow along with you. Discussed with RN Subjective Allergies: Coded Allergies: No Known Allergies (Unverified , 03/22/18) Subjective afebrile WBC 13 Cr imrpoving CXR w consolidation Objective Vital Signs Last 24 Hour Vital Signs Date Time Temp Pulse Resp B/P (MAP) Pulse Ox O2 Delivery O2 Flow Rate FiO2 03/26/18 20:00 97.9 89 20 138/94 (109) 96 97.9 03/26/18 16:36 83 129/83 03/26/18 16:00 96.4 83 18 129/83 (98) 95 96.4 03/26/18 11:51 97.2 84 18 136/84 (101) 95 97.2 03/26/18 09:00 Room Air 03/26/18 08:30 91 129/88 03/26/18 08:00 96.6 91 18 129/88 (102) 95 96.6 03/26/18 04:00 98.2 90 17 133/86 (102) 94 98.2 03/26/18 00:00 98.4 93 18 127/84 (98) 92 98.4 Height (Feet): 5 Height (Inches): 11.00 Weight (Pounds): 259 Objective GENERAL: The patient is a well-developed, well-nourished, male, in no apparent distress. HEENT: Pupils are equal and responsive to light and accommodation. Extraocular movements are intact. NECK: Supple without lymphadenopathy. CHEST: Lungs are clear to auscultation bilaterally without wheezes or rales. CARDIOVASCULAR: Regular rhythm rate. S1 and S2 are normal without murmurs, rubs, or gallops. ABDOMEN: Soft, nontender, nondistended. Positive bowel sounds. No evidence of hepatosplenomegaly. Currently, no rebound or guarding noted. EXTREMITIES: Negative for clubbing, cyanosis, or edema. Microbiology Date/Time Source Procedure Growth Status 03/24/18 13:45 Urine,Clean Catch Urine Culture - Preliminary Gram Positive Cocci Resulted Laboratory Tests Test 03/26/18 05:00 White Blood Count 13.1 K/UL (4.8-10.8) H Red Blood Count 3.52 M/UL (4.70-6.10) L Hemoglobin 11.0 G/DL (14.2-18.0) L Hematocrit 31.9 % (42.0-52.0) L Mean Corpuscular Volume 90 FL (80-99) Mean Corpuscular Hemoglobin 31.2 PG (27.0-31.0) H Mean Corpuscular Hemoglobin Concent 34.4 G/DL (32.0-36.0) Red Cell Distribution Width 11.7 % (11.6-14.8) Platelet Count 284 K/UL (150-450) Mean Platelet Volume 7.4 FL (6.5-10.1) Neutrophils (%) (Auto) 75.0 % (45.0-75.0) Lymphocytes (%) (Auto) 17.6 % (20.0-45.0) L Monocytes (%) (Auto) 6.9 % (1.0-10.0) Eosinophils (%) (Auto) 0.0 % (0.0-3.0) Basophils (%) (Auto) 0.5 % (0.0-2.0) Sodium Level 139 MMOL/L (136-145) Potassium Level 3.9 MMOL/L (3.5-5.1) Chloride Level 102 MMOL/L (98-107) Carbon Dioxide Level 28 MMOL/L (21-32) Anion Gap 9 mmol/L (5-15) Blood Urea Nitrogen 42 mg/dL (7-18) H Creatinine 2.8 MG/DL (0.55-1.30) H Estimat Glomerular Filtration Rate 28.2 mL/min (>60) Glucose Level 144 MG/DL (74-106) H Uric Acid 7.3 MG/DL (2.6-7.2) H Calcium Level 8.0 MG/DL (8.5-10.1) L Phosphorus Level 3.8 MG/DL (2.5-4.9) Magnesium Level 1.6 MG/DL (1.8-2.4) L Total Bilirubin 0.5 MG/DL (0.2-1.0) Gamma Glutamyl Transpeptidase 128 U/L (5-85) H Aspartate Amino Transf (AST/SGOT) 193 U/L (15-37) H Alanine Aminotransferase (ALT/SGPT) 256 U/L (12-78) H Alkaline Phosphatase 115 U/L (46-116) Total Creatine Kinase 77 U/L (26-308) Total Protein 6.8 G/DL (6.4-8.2) Albumin 2.4 G/DL (3.4-5.0) L Globulin 4.4 g/dL Albumin/Globulin Ratio 0.5 (1.0-2.7) L Current Medications Medications (Trade) Dose Ordered Sig/Swetha Route PRN Reason Start Time Stop Time Status Last Admin Dose Admin Acetaminophen (Tylenol) 650 mg Q4H PRN ORAL Mild Pain (Pain Scale 1-3) 03/22/18 07:45 04/21/18 07:44 Allopurinol (Zyloprim) 200 mg DAILY ORAL 03/25/18 09:00 04/24/18 08:59 03/26/18 08:29 Amlodipine Besylate (Norvasc) 5 mg BID ORAL 03/22/18 18:00 04/21/18 08:59 03/26/18 16:36 Aspirin (ASA) 325 mg DAILY ORAL 03/24/18 09:00 04/23/18 08:59 03/26/18 08:30 Clonidine HCl (Catapres Tab) 0.1 mg Q4H PRN ORAL SBP > 165 03/22/18 15:45 04/21/18 07:44 03/25/18 18:00 Dextrose (Dextrose 50%) 25 ml STAT PRN IV Hypoglycemia 03/24/18 18:00 04/23/18 17:59 Dextrose (Dextrose 50%) 50 ml STAT PRN IV Hypoglycemia 03/24/18 18:00 04/23/18 17:59 Docusate Sodium (Colace) 100 mg TID ORAL 03/22/18 13:00 04/21/18 08:59 03/26/18 16:37 Fish Oil (Fish Oil) 1,000 mg BID ORAL 03/26/18 18:00 04/23/18 06:29 03/26/18 18:15 Heparin Sodium (Porcine) (Heparin 5000 units/ml) 5,000 units EVERY 12 HOURS SUBQ 03/22/18 09:00 04/21/18 08:59 03/26/18 08:34 Insulin Aspart (NovoLOG) BEFORE MEALS AND HS SUBQ 03/24/18 21:00 04/23/18 20:59 03/26/18 11:24 Nateglinide (Starlix) 120 mg TIAC ORAL 03/25/18 11:30 04/21/18 16:29 03/26/18 16:36 Ondansetron HCl (Zofran) 4 mg Q6H PRN IVP Nausea & Vomiting 03/22/18 07:45 04/21/18 07:44 Pantoprazole (Protonix) 40 mg DAILY ORAL 03/27/18 09:00 04/26/18 08:59 Polyethylene Glycol (Miralax) 17 gm HSPRN PRN ORAL Constipation 03/22/18 07:45 04/21/18 07:44 Sodium Chloride 1,000 ml @ 75 mls/hr [id number] IV 03/25/18 09:30 04/21/18 09:29 03/26/18 12:10 Tamsulosin HCl (Flomax) 0.4 mg BID ORAL 03/24/18 13:00 04/21/18 20:59 03/26/18 16:36 Marina Torres M.D. Mar 26, 2018 21:30
[2018-03-26] MEDS ORDERED: Azithromycin 250mg tab ORAL SCH (22:30)
[2018-03-26] MEDS ORDERED: cefTRIAXone 1 GM in D5W 110 ML IVPB SCH (22:30)
[2018-03-27] VITALS: BP 129/90
[2018-03-27 04:00] VITALS: BP 124/86
[2018-03-27 06:22] LABS: BASOPHILS % (AUTO) 0.5 % (0.0-2.0); HEMATOCRIT 31.3 % (42.0-52.0); HEMOGLOBIN 10.5 G/DL (14.2-18.0); MEAN CORPUSCULAR VOLUME 92 FL (80-99); MONOCYTES % (AUTO) 6.3 % (1.0-10.0); NEUTROPHILS % (AUTO) 72.2 % (45.0-75.0); PLATELET COUNT 312 K/UL (150-450); RED BLOOD COUNT 3.41 M/UL (4.70-6.10); RED CELL DISTRIBUTION WIDTH 12.1 % (11.6-14.8); WHITE BLOOD COUNT 11.5 K/UL (4.8-10.8)
[2018-03-27] MEDS: Nateglinide 60mg tab ORAL SCH ×3 (06:46→16:30)
[2018-03-27] MEDS: NovoLOG Insulin Flexpen SUBQ SCH ×3 (06:50→16:30)
--- NOTE | 2018-03-27 07:00 | General Progress Note ---
Assessment/Plan Problem List: (1) Kidney stones ICD Codes: N20.0 - Calculus of kidney SNOMED: 05874334 (2) Hypercholesteremia ICD Codes: E78.00 - Pure hypercholesterolemia, unspecified SNOMED: 31089943 (3) Diabetes type 2, uncontrolled ICD Codes: E11.65 - Type 2 diabetes mellitus with hyperglycemia SNOMED: 92951578, 168020072 Assessment/Plan continue Starlix 120 mg ac tid continue NISS Subjective Allergies: Coded Allergies: No Known Allergies (Unverified , 03/22/18) All Systems: reviewed and negative except above Subjective events noted Objective Last 24 Hour Vital Signs Date Time Temp Pulse Resp B/P (MAP) Pulse Ox O2 Delivery O2 Flow Rate FiO2 03/27/18 04:00 98.2 76 18 124/86 (99) 97 98.2 03/27/18 00:00 98.0 79 19 129/90 (103) 96 98.0 03/26/18 21:00 Room Air 03/26/18 20:00 97.9 89 20 138/94 (109) 96 97.9 03/26/18 16:36 83 129/83 03/26/18 16:00 96.4 83 18 129/83 (98) 95 96.4 03/26/18 11:51 97.2 84 18 136/84 (101) 95 97.2 03/26/18 09:00 Room Air 03/26/18 08:30 91 129/88 03/26/18 08:00 96.6 91 18 129/88 (102) 95 96.6 Intake and Output 03/26/18 03/27/18 19:00 07:00 Intake Total 1470 ml Balance 1470 ml Intake Oral 520 ml IV Total 950 ml # Voids 5 # Bowel Movements 1 1 Laboratory Tests 03/27/18 04:50: White Blood Count 11.5H, Red Blood Count 3.41L, Hemoglobin 10.5L, Hematocrit 31.3L, Mean Corpuscular Volume 92, Mean Corpuscular Hemoglobin 30.8, Mean Corpuscular Hemoglobin Concent 33.5, Red Cell Distribution Width 12.1, Platelet Count 312, Mean Platelet Volume 6.8, Neutrophils (%) (Auto) 72.2, Lymphocytes (% ) (Auto) 21.0, Monocytes (%) (Auto) 6.3, Eosinophils (%) (Auto) 0.0, Basophils ( %) (Auto) 0.5, Sodium Level [Pending], Potassium Level [Pending], Chloride Level [Pending], Carbon Dioxide Level [Pending], Blood Urea Nitrogen [Pending], Creatinine [Pending], Estimat Glomerular Filtration Rate [Pending], Glucose Level [Pending], Uric Acid [Pending], Calcium Level [Pending], Phosphorus Level [Pending], Magnesium Level [Pending], Total Bilirubin [Pending], Gamma Glutamyl Transpeptidase [Pending], Aspartate Amino Transf (AST/SGOT) [Pending], Alanine Aminotransferase (ALT/SGPT) [Pending], Alkaline Phosphatase [Pending], Total Protein [Pending], Albumin [Pending], Globulin [Pending], Triglycerides Level [ Pending], Cholesterol Level [Pending], LDL Cholesterol [Pending], HDL Cholesterol [Pending], Cholesterol/HDL Ratio [Pending] Height (Feet): 5 Height (Inches): 11.00 Weight (Pounds): 259 General Appearance: no apparent distress Neck: normal alignment Cardiovascular: normal rate Respiratory/Chest: lungs clear Pelvis: normal external exam Objective Current Medications Medications (Trade) Dose Ordered Sig/Swetha Route PRN Reason Start Time Stop Time Status Last Admin Dose Admin Acetaminophen (Tylenol) 650 mg Q4H PRN ORAL Mild Pain (Pain Scale 1-3) 03/22/18 07:45 04/21/18 07:44 Allopurinol (Zyloprim) 200 mg DAILY ORAL 03/25/18 09:00 04/24/18 08:59 03/26/18 08:29 Amlodipine Besylate (Norvasc) 5 mg BID ORAL 03/22/18 18:00 04/21/18 08:59 03/26/18 16:36 Aspirin (ASA) 325 mg DAILY ORAL 03/24/18 09:00 04/23/18 08:59 03/26/18 08:30 Azithromycin (Zithromax) 500 mg Q24H ORAL 03/26/18 22:30 04/02/18 22:29 03/26/18 23:23 Ceftriaxone Sodium 1 gm/ Dextrose 110 ml @ 220 mls/hr Q24H IVPB 03/26/18 22:30 04/02/18 22:29 7/8/18 23:23 Clonidine HCl (Catapres Tab) 0.1 mg Q4H PRN ORAL SBP > 165 03/22/18 15:45 04/21/18 07:44 03/25/18 18:00 Dextrose (Dextrose 50%) 25 ml STAT PRN IV Hypoglycemia 03/24/18 18:00 04/23/18 17:59 Dextrose (Dextrose 50%) 50 ml STAT PRN IV Hypoglycemia 03/24/18 18:00 04/23/18 17:59 Docusate Sodium (Colace) 100 mg TID ORAL 03/22/18 13:00 04/21/18 08:59 03/26/18 16:37 Fish Oil (Fish Oil) 1,000 mg BID ORAL 03/26/18 18:00 04/23/18 06:29 03/26/18 18:15 Heparin Sodium (Porcine) (Heparin 5000 units/ml) 5,000 units EVERY 12 HOURS SUBQ 03/22/18 09:00 04/21/18 08:59 03/26/18 22:31 Insulin Aspart (NovoLOG) BEFORE MEALS AND HS SUBQ 03/24/18 21:00 04/23/18 20:59 03/27/18 06:50 Nateglinide (Starlix) 120 mg TIAC ORAL 03/25/18 11:30 04/21/18 16:29 03/27/18 06:46 Ondansetron HCl (Zofran) 4 mg Q6H PRN IVP Nausea & Vomiting 03/22/18 07:45 04/21/18 07:44 Pantoprazole (Protonix) 40 mg DAILY ORAL 03/27/18 09:00 04/26/18 08:59 Polyethylene Glycol (Miralax) 17 gm HSPRN PRN ORAL Constipation 03/22/18 07:45 04/21/18 07:44 Sodium Chloride 1,000 ml @ 75 mls/hr [id number] IV 03/25/18 09:30 04/21/18 09:29 03/26/18 12:10 Tamsulosin HCl (Flomax) 0.4 mg BID ORAL 03/24/18 13:00 04/21/18 20:59 03/26/18 16:36 Item Value Date Time Bedside Blood Glucose 141 mg/dl H 03/27/18 0650 Bedside Blood Glucose 122 mg/dl H 03/26/18 2232 Bedside Blood Glucose 121 mg/dl H 03/26/18 1630 Bedside Blood Glucose 130 mg/dl H 03/26/18 1124 Bedside Blood Glucose 178 mg/dl H 03/26/18 0553 Maciel Quiroga MD Mar 27, 2018 07:00
[2018-03-27 07:16] LABS: ALANINE AMINOTRANSFERASE 267 U/L (12-78); ALBUMIN 2.5 G/DL (3.4-5.0); ALBUMIN/GLOBULIN RATIO 0.6 (1.0-2.7); ALKALINE PHOSPHATASE 114 U/L (46-116); ANION GAP 10 mmol/L (5-15); ASPARTATE AMINO TRANSFERASE 173 U/L (15-37); BILIRUBIN,TOTAL 0.4 MG/DL (0.2-1.0); BLOOD UREA NITROGEN 34 mg/dL (7-18); CALCIUM 8.5 MG/DL (8.5-10.1); CARBON DIOXIDE 25 MMOL/L (21-32); CHLORIDE 104 MMOL/L (98-107); CHOLESTEROL 336 MG/DL (< 200); CREATININE 2.2 MG/DL (0.55-1.30); HDL CHOLESTEROL 19 MG/DL (40-60); PHOSPHORUS 3.9 MG/DL (2.5-4.9); POTASSIUM 4.1 MMOL/L (3.5-5.1); SODIUM 139 MMOL/L (136-145); TRIGLYCERIDES 263 MG/DL (30-150)
[2018-03-27 08:00] VITALS: BP 172/99
[2018-03-27] MEDS: Heparin 5000 units/ml inj SUBQ SCH (09:00)
[2018-03-27] MEDS: Allopurinol 100mg Tab ORAL SCH (09:10)
[2018-03-27] MEDS: Docusate 100mg cap ORAL SCH ×2 (09:10→12:15)
[2018-03-27] MEDS: Tamsulosin 0.4mg cap ORAL SCH (09:10)
--- NOTE | 2018-03-27 11:00 | Internal Med Progress Note ---
Subjective Date of Service: Mar 27, 2018 Physician Name Yunior Zayas Attending Physician Murali Orozco MD Current Medications Medications (Trade) Dose Ordered Sig/Swetha Route PRN Reason Start Time Stop Time Status Last Admin Dose Admin Acetaminophen (Tylenol) 650 mg Q4H PRN ORAL Mild Pain (Pain Scale 1-3) 03/22/18 07:45 04/21/18 07:44 Allopurinol (Zyloprim) 200 mg DAILY ORAL 03/25/18 09:00 04/24/18 08:59 03/27/18 09:10 Amlodipine Besylate (Norvasc) 5 mg BID ORAL 03/22/18 18:00 04/21/18 08:59 03/27/18 09:11 Aspirin (ASA) 325 mg DAILY ORAL 03/24/18 09:00 04/23/18 08:59 03/27/18 09:10 Azithromycin (Zithromax) 500 mg Q24H ORAL 03/26/18 22:30 04/02/18 22:29 03/26/18 23:23 Ceftriaxone Sodium 1 gm/ Dextrose 110 ml @ 220 mls/hr Q24H IVPB 03/26/18 22:30 04/02/18 22:29 03/26/18 23:23 Clonidine HCl (Catapres Tab) 0.1 mg Q4H PRN ORAL SBP > 165 03/22/18 15:45 04/21/18 07:44 03/27/18 09:10 Dextrose (Dextrose 50%) 25 ml STAT PRN IV Hypoglycemia 03/24/18 18:00 04/23/18 17:59 Dextrose (Dextrose 50%) 50 ml STAT PRN IV Hypoglycemia 03/24/18 18:00 04/23/18 17:59 Docusate Sodium (Colace) 100 mg TID ORAL 03/22/18 13:00 04/21/18 08:59 03/27/18 09:10 Fish Oil (Fish Oil) 1,000 mg BID ORAL 03/26/18 18:00 04/23/18 06:29 03/27/18 09:10 Heparin Sodium (Porcine) (Heparin 5000 units/ml) 5,000 units EVERY 12 HOURS SUBQ 03/22/18 09:00 04/21/18 08:59 03/26/18 22:31 Insulin Aspart (NovoLOG) BEFORE MEALS AND HS SUBQ 03/24/18 21:00 04/23/18 20:59 03/27/18 06:50 Nateglinide (Starlix) 120 mg TIAC ORAL 03/25/18 11:30 04/21/18 16:29 03/27/18 06:46 Ondansetron HCl (Zofran) 4 mg Q6H PRN IVP Nausea & Vomiting 03/22/18 07:45 04/21/18 07:44 Pantoprazole (Protonix) 40 mg DAILY ORAL 03/27/18 09:00 04/26/18 08:59 03/27/18 09:10 Polyethylene Glycol (Miralax) 17 gm HSPRN PRN ORAL Constipation 03/22/18 07:45 04/21/18 07:44 Sodium Chloride 1,000 ml @ 75 mls/hr [id number] IV 03/25/18 09:30 04/21/18 09:29 03/26/18 12:10 Tamsulosin HCl (Flomax) 0.4 mg BID ORAL 03/24/18 13:00 04/21/18 20:59 03/27/18 09:10 Allergies: Coded Allergies: No Known Allergies (Unverified , 03/22/18) ROS Limited/Unobtainable: No Constitutional: Reports: no symptoms HEENT: Reports: no symptoms Cardiovascular: Reports: no symptoms Respiratory: Reports: no symptoms Gastrointestinal/Abdominal: Reports: no symptoms Genitourinary: Reports: no symptoms Neurologic/Psychiatric: Reports: no symptoms Subjective 57 YO M admitted with fatigue and anorexia. Now uncontrolled hypertension and acute renal failure. Cover for Sedrick Chapman-Dr Orozco Objective Last Vital Signs Date Time Temp Pulse Resp B/P (MAP) Pulse Ox O2 Delivery O2 Flow Rate FiO2 03/27/18 09:11 94 172/99 03/27/18 08:00 97.9 20 97.9 03/27/18 04:00 97 03/26/18 21:00 Room Air Laboratory Tests Test 03/27/18 04:50 White Blood Count 11.5 K/UL (4.8-10.8) H Red Blood Count 3.41 M/UL (4.70-6.10) L Hemoglobin 10.5 G/DL (14.2-18.0) L Hematocrit 31.3 % (42.0-52.0) L Mean Corpuscular Volume 92 FL (80-99) Mean Corpuscular Hemoglobin 30.8 PG (27.0-31.0) Mean Corpuscular Hemoglobin Concent 33.5 G/DL (32.0-36.0) Red Cell Distribution Width 12.1 % (11.6-14.8) Platelet Count 312 K/UL (150-450) Mean Platelet Volume 6.8 FL (6.5-10.1) Neutrophils (%) (Auto) 72.2 % (45.0-75.0) Lymphocytes (%) (Auto) 21.0 % (20.0-45.0) Monocytes (%) (Auto) 6.3 % (1.0-10.0) Eosinophils (%) (Auto) 0.0 % (0.0-3.0) Basophils (%) (Auto) 0.5 % (0.0-2.0) Sodium Level 139 MMOL/L (136-145) Potassium Level 4.1 MMOL/L (3.5-5.1) Chloride Level 104 MMOL/L (98-107) Carbon Dioxide Level 25 MMOL/L (21-32) Anion Gap 10 mmol/L (5-15) Blood Urea Nitrogen 34 mg/dL (7-18) H Creatinine 2.2 MG/DL (0.55-1.30) H Estimat Glomerular Filtration Rate 37.3 mL/min (>60) Glucose Level 129 MG/DL (74-106) H Uric Acid 7.1 MG/DL (2.6-7.2) Calcium Level 8.5 MG/DL (8.5-10.1) Phosphorus Level 3.9 MG/DL (2.5-4.9) Magnesium Level 1.7 MG/DL (1.8-2.4) L Total Bilirubin 0.4 MG/DL (0.2-1.0) Gamma Glutamyl Transpeptidase 121 U/L (5-85) H Aspartate Amino Transf (AST/SGOT) 173 U/L (15-37) H Alanine Aminotransferase (ALT/SGPT) 267 U/L (12-78) H Alkaline Phosphatase 114 U/L (46-116) Total Protein 6.9 G/DL (6.4-8.2) Albumin 2.5 G/DL (3.4-5.0) L Globulin 4.4 g/dL Albumin/Globulin Ratio 0.6 (1.0-2.7) L Triglycerides Level 263 MG/DL (30-150) H Cholesterol Level 336 MG/DL (< 200) H LDL Cholesterol 255 mg/dL (<100) H HDL Cholesterol 19 MG/DL (40-60) L Cholesterol/HDL Ratio 17.7 (3.3-4.4) H Microbiology Date/Time Source Procedure Growth Status 03/24/18 13:45 Urine,Clean Catch Urine Culture - Final Staphylococcus Haemolyticus Complete Intake and Output 03/26/18 03/27/18 19:00 07:00 Intake Total 1470 ml 110 ml Balance 1470 ml 110 ml Intake Oral 520 ml IV Total 950 ml 110 ml # Voids 5 # Bowel Movements 1 1 Objective General Appearance: WD/WN, no apparent distress, alert EENT: PERRL/EOMI, normal ENT inspection Neck: non-tender, normal alignment, supple, normal inspection Cardiovascular: normal peripheral pulses, normal rate, regular rhythm, no gallop/murmur, no JVD Respiratory/Chest: chest wall non-tender, lungs clear, normal breath sounds, no respiratory distress, no accessory muscle use Abdomen: normal bowel sounds, non tender, soft, no organomegaly, no mass Extremities: normal range of motion, non-tender 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 See cardiology note. (6) Acute renal failure (ARF) Assessment & Plan: Improving; S/P Hemodialysis 03/23/18 and 03/25/18-see nephrology note (7) Diabetes type 2, uncontrolled Assessment & Plan: Continue starlix. Start novolog sliding scale. Status: stable Assessment/Plan Discharge planning: home Yunior Zayas MD Mar 27, 2018 11:00
--- NOTE | 2018-03-27 11:31 | Nephrology Progress Note ---
Assessment/Plan Problem List: (1) Acute renal failure (ARF) (2) Hypertension (3) Diabetes type 2, uncontrolled (4) Elevated lipids (5) Obesity (BMI 30-39.9) Assessment Acute Renal Failure seems resolving DM as Hgb A1c Elevated Obesity HTN abnormal LFTs ? Fatty infilt High Uric High Cholestrol Plan Cr lower Will DC the Jugular catheter and Discharge home stop Lipitor as LFTs rising Voiding well. Kidney ROWAN no hydro 2D Echo noted Urine studies Hydrate Keep BP and BS in check starlix to 120 mg TID Flomax Hepatitis panel Dialysis - Agreed first done 03/23 nexr 03/25 allopurinol started discussed with If Cr stable or lower will DC in am Subjective ROS Limited/Unobtainable: No Objective Objective Last 24 Hour Vital Signs Date Time Temp Pulse Resp B/P (MAP) Pulse Ox O2 Delivery O2 Flow Rate FiO2 03/27/18 09:11 94 172/99 03/27/18 09:10 172/99 03/27/18 08:20 Room Air 03/27/18 08:00 97.9 94 20 172/99 (123) 97.9 03/27/18 04:00 98.2 76 18 124/86 (99) 97 98.2 03/27/18 00:00 98.0 79 19 129/90 (103) 96 98.0 03/26/18 21:00 Room Air 03/26/18 20:00 97.9 89 20 138/94 (109) 96 97.9 03/26/18 16:36 83 129/83 03/26/18 16:00 96.4 83 18 129/83 (98) 95 96.4 03/26/18 11:51 97.2 84 18 136/84 (101) 95 97.2 Intake and Output 03/26/18 03/27/18 19:00 07:00 Intake Total 1470 ml 110 ml Balance 1470 ml 110 ml Intake Oral 520 ml IV Total 950 ml 110 ml # Voids 5 # Bowel Movements 1 1 Current Medications Medications (Trade) Dose Ordered Sig/Swetha Route PRN Reason Start Time Stop Time Status Last Admin Dose Admin Acetaminophen (Tylenol) 650 mg Q4H PRN ORAL Mild Pain (Pain Scale 1-3) 03/22/18 07:45 04/21/18 07:44 Allopurinol (Zyloprim) 200 mg DAILY ORAL 03/25/18 09:00 04/24/18 08:59 03/27/18 09:10 Amlodipine Besylate (Norvasc) 5 mg BID ORAL 03/22/18 18:00 04/21/18 08:59 03/27/18 09:11 Aspirin (ASA) 325 mg DAILY ORAL 03/24/18 09:00 04/23/18 08:59 03/27/18 09:10 Azithromycin (Zithromax) 500 mg Q24H ORAL 03/26/18 22:30 04/02/18 22:29 03/26/18 23:23 Ceftriaxone Sodium 1 gm/ Dextrose 110 ml @ 220 mls/hr Q24H IVPB 03/26/18 22:30 04/02/18 22:29 03/26/18 23:23 Clonidine HCl (Catapres Tab) 0.1 mg Q4H PRN ORAL SBP > 165 03/22/18 15:45 04/21/18 07:44 03/27/18 09:10 Dextrose (Dextrose 50%) 25 ml STAT PRN IV Hypoglycemia 03/24/18 18:00 04/23/18 17:59 Dextrose (Dextrose 50%) 50 ml STAT PRN IV Hypoglycemia 03/24/18 18:00 04/23/18 17:59 Docusate Sodium (Colace) 100 mg TID ORAL 03/22/18 13:00 04/21/18 08:59 03/27/18 09:10 Fish Oil (Fish Oil) 1,000 mg BID ORAL 03/26/18 18:00 04/23/18 06:29 03/27/18 09:10 Heparin Sodium (Porcine) (Heparin 5000 units/ml) 5,000 units EVERY 12 HOURS SUBQ 03/22/18 09:00 04/21/18 08:59 03/26/18 22:31 Insulin Aspart (NovoLOG) BEFORE MEALS AND HS SUBQ 03/24/18 21:00 04/23/18 20:59 03/27/18 06:50 Nateglinide (Starlix) 120 mg TIAC ORAL 03/25/18 11:30 04/21/18 16:29 03/27/18 06:46 Ondansetron HCl (Zofran) 4 mg Q6H PRN IVP Nausea & Vomiting 03/22/18 07:45 04/21/18 07:44 Pantoprazole (Protonix) 40 mg DAILY ORAL 03/27/18 09:00 04/26/18 08:59 03/27/18 09:10 Polyethylene Glycol (Miralax) 17 gm HSPRN PRN ORAL Constipation 03/22/18 07:45 04/21/18 07:44 Sodium Chloride 1,000 ml @ 75 mls/hr [id number] IV 03/25/18 09:30 04/21/18 09:29 03/26/18 12:10 Tamsulosin HCl (Flomax) 0.4 mg BID ORAL 03/24/18 13:00 04/21/18 20:59 03/27/18 09:10 Laboratory Tests 03/27/18 04:50: White Blood Count 11.5H, Red Blood Count 3.41L, Hemoglobin 10.5L, Hematocrit 31.3L, Mean Corpuscular Volume 92, Mean Corpuscular Hemoglobin 30.8, Mean Corpuscular Hemoglobin Concent 33.5, Red Cell Distribution Width 12.1, Platelet Count 312, Mean Platelet Volume 6.8, Neutrophils (%) (Auto) 72.2, Lymphocytes (% ) (Auto) 21.0, Monocytes (%) (Auto) 6.3, Eosinophils (%) (Auto) 0.0, Basophils ( %) (Auto) 0.5, Sodium Level 139, Potassium Level 4.1, Chloride Level 104, Carbon Dioxide Level 25, Anion Gap 10, Blood Urea Nitrogen 34H, Creatinine 2.2H , Estimat Glomerular Filtration Rate 37.3, Glucose Level 129H, Uric Acid 7.1, Calcium Level 8.5, Phosphorus Level 3.9, Magnesium Level 1.7L, Total Bilirubin 0.4, Gamma Glutamyl Transpeptidase 121H, Aspartate Amino Transf (AST/SGOT) 173H , Alanine Aminotransferase (ALT/SGPT) 267H, Alkaline Phosphatase 114, Total Protein 6.9, Albumin 2.5L, Globulin 4.4, Albumin/Globulin Ratio 0.6L, Triglycerides Level 263H, Cholesterol Level 336H, LDL Cholesterol 255H, HDL Cholesterol 19L, Cholesterol/HDL Ratio 17.7H Height (Feet): 5 Height (Inches): 11.00 Weight (Pounds): 259 General Appearance: no apparent distress Cardiovascular: regular rhythm Respiratory/Chest: lungs clear Abdomen: soft FOULADIAN,BRENNAN Mar 27, 2018 11:31
--- NOTE | 2018-03-27 11:39 | Cardiology Progress Note ---
Assessment/Plan Status: stable Assessment/Plan Acute Renal Failure DM as Hgb A1c Elevated Obesity HTN abnormal LFTs AMS Urinary retention 1) Echocardiogram reviewed- evidence of hypertensive heart disease, continue blood pressure control. 2) Allopurinol for elevated uric acid 3) outpatient ischemia evaluation due to multiple cardiac risk factors 4) Norvasc for hypertension, add clonidine or hydralazine if not controlled 5) Aspirin 6) Lipitor held due to elevated LFT, continue fish oil 7) Repeat lipid panel in 6 weeks 8) Maintain hemodialysis 9) can initiate repatha as outpatient 10) Discharge home Subjective Cardiovascular: Reports: no symptoms Respiratory: Reports: no symptoms Gastrointestinal/Abdominal: Reports: no symptoms Genitourinary: Reports: no symptoms Subjective No acute events, no complaints, vitals stable, BP controlled, no side effects of medications, HD planned for today, creatinine improved Echo with LV from HTN, normal function and PA pressures. Plan to discharge home today Objective Last 24 Hour Vital Signs Date Time Temp Pulse Resp B/P (MAP) Pulse Ox O2 Delivery O2 Flow Rate FiO2 03/27/18 09:11 94 172/99 03/27/18 09:10 172/99 03/27/18 08:20 Room Air 03/27/18 08:00 97.9 94 20 172/99 (123) 97.9 03/27/18 04:00 98.2 76 18 124/86 (99) 97 98.2 03/27/18 00:00 98.0 79 19 129/90 (103) 96 98.0 03/26/18 21:00 Room Air 03/26/18 20:00 97.9 89 20 138/94 (109) 96 97.9 03/26/18 16:36 83 129/83 03/26/18 16:00 96.4 83 18 129/83 (98) 95 96.4 03/26/18 11:51 97.2 84 18 136/84 (101) 95 97.2 General Appearance: no apparent distress EENT: PERRL/EOMI Neck: non-tender Rhythm: NSR Cardiovascular: normal peripheral pulses Respiratory/Chest: chest wall non-tender Abdomen: non tender Extremities: normal range of motion 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 Intake and Output 03/26/18 03/27/18 19:00 07:00 Intake Total 1470 ml 110 ml Balance 1470 ml 110 ml Intake Oral 520 ml IV Total 950 ml 110 ml # Voids 5 # Bowel Movements 1 1 Laboratory Tests Test 03/27/18 04:50 White Blood Count 11.5 K/UL (4.8-10.8) H Red Blood Count 3.41 M/UL (4.70-6.10) L Hemoglobin 10.5 G/DL (14.2-18.0) L Hematocrit 31.3 % (42.0-52.0) L Mean Corpuscular Volume 92 FL (80-99) Mean Corpuscular Hemoglobin 30.8 PG (27.0-31.0) Mean Corpuscular Hemoglobin Concent 33.5 G/DL (32.0-36.0) Red Cell Distribution Width 12.1 % (11.6-14.8) Platelet Count 312 K/UL (150-450) Mean Platelet Volume 6.8 FL (6.5-10.1) Neutrophils (%) (Auto) 72.2 % (45.0-75.0) Lymphocytes (%) (Auto) 21.0 % (20.0-45.0) Monocytes (%) (Auto) 6.3 % (1.0-10.0) Eosinophils (%) (Auto) 0.0 % (0.0-3.0) Basophils (%) (Auto) 0.5 % (0.0-2.0) Sodium Level 139 MMOL/L (136-145) Potassium Level 4.1 MMOL/L (3.5-5.1) Chloride Level 104 MMOL/L (98-107) Carbon Dioxide Level 25 MMOL/L (21-32) Anion Gap 10 mmol/L (5-15) Blood Urea Nitrogen 34 mg/dL (7-18) H Creatinine 2.2 MG/DL (0.55-1.30) H Estimat Glomerular Filtration Rate 37.3 mL/min (>60) Glucose Level 129 MG/DL (74-106) H Uric Acid 7.1 MG/DL (2.6-7.2) Calcium Level 8.5 MG/DL (8.5-10.1) Phosphorus Level 3.9 MG/DL (2.5-4.9) Magnesium Level 1.7 MG/DL (1.8-2.4) L Total Bilirubin 0.4 MG/DL (0.2-1.0) Gamma Glutamyl Transpeptidase 121 U/L (5-85) H Aspartate Amino Transf (AST/SGOT) 173 U/L (15-37) H Alanine Aminotransferase (ALT/SGPT) 267 U/L (12-78) H Alkaline Phosphatase 114 U/L (46-116) Total Protein 6.9 G/DL (6.4-8.2) Albumin 2.5 G/DL (3.4-5.0) L Globulin 4.4 g/dL Albumin/Globulin Ratio 0.6 (1.0-2.7) L Triglycerides Level 263 MG/DL (30-150) H Cholesterol Level 336 MG/DL (< 200) H LDL Cholesterol 255 mg/dL (<100) H HDL Cholesterol 19 MG/DL (40-60) L Cholesterol/HDL Ratio 17.7 (3.3-4.4) H Microbiology Date/Time Source Procedure Growth Status 03/24/18 13:45 Urine,Clean Catch Urine Culture - Final Staphylococcus Haemolyticus Complete Vijay Singer M.D. Mar 27, 2018 11:39
[2018-03-27 12:00] VITALS: BP 147/89
--- NOTE | 2018-03-27 13:39 | Infectious Diseases Prog Note ---
Assessment/Plan Assessment/Plan Abx: Ceftriaxone x1 03/24 Assessment: Acute renal failure (?CKD); improving- started on HD 03/23 Electrolyte disturbances; resolving Leukocytosis (mild); improving- suspect likely reactive and possible PNA -CXR: Left lower lung consolidation, suspicious for pneumonia. 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 There is also a cortical cyst in this area. Echogenic liver parenchyma may reflect steatosis. No gallstones or other biliary pathology -hep Serologies pending untreated HTN HLD Obesity HLD uncontrolled Dm2 Plan: -Continue Ceftriaxone and Azithromycin #2/5 for possible PNA; upon discharge can be transitioned to PO Levaquin 750mg q48hr -f/u cx -Monitor CBC/BMP, temperaturesl Trend LFTs -f/u hep serologies -Renal f/u Thank you for this consultation. Will continue to follow along with you. Discussed with RN Subjective Allergies: Coded Allergies: No Known Allergies (Unverified , 03/22/18) Subjective afebrile Leukocytosis improving Cr improving Objective Vital Signs Last 24 Hour Vital Signs Date Time Temp Pulse Resp B/P (MAP) Pulse Ox O2 Delivery O2 Flow Rate FiO2 03/27/18 12:00 97.8 82 20 147/89 (108) 94 97.8 03/27/18 09:11 94 172/99 03/27/18 09:10 172/99 03/27/18 08:20 Room Air 03/27/18 08:00 97.9 94 20 172/99 (123) 97.9 03/27/18 04:00 98.2 76 18 124/86 (99) 97 98.2 03/27/18 00:00 98.0 79 19 129/90 (103) 96 98.0 03/26/18 21:00 Room Air 03/26/18 20:00 97.9 89 20 138/94 (109) 96 97.9 03/26/18 16:36 83 129/83 03/26/18 16:00 96.4 83 18 129/83 (98) 95 96.4 Height (Feet): 5 Height (Inches): 11.00 Weight (Pounds): 259 Objective GENERAL: The patient is a well-developed, well-nourished, male, in no apparent distress. HEENT: Pupils are equal and responsive to light and accommodation. Extraocular movements are intact. NECK: Supple without lymphadenopathy. CHEST: Lungs are clear to auscultation bilaterally without wheezes or rales. CARDIOVASCULAR: Regular rhythm rate. S1 and S2 are normal without murmurs, rubs, or gallops. ABDOMEN: Soft, nontender, nondistended. Positive bowel sounds. No evidence of hepatosplenomegaly. Currently, no rebound or guarding noted. EXTREMITIES: Negative for clubbing, cyanosis, or edema. Microbiology Date/Time Source Procedure Growth Status 03/24/18 13:45 Urine,Clean Catch Urine Culture - Final Staphylococcus Haemolyticus Complete Laboratory Tests Test 03/27/18 04:50 White Blood Count 11.5 K/UL (4.8-10.8) H Red Blood Count 3.41 M/UL (4.70-6.10) L Hemoglobin 10.5 G/DL (14.2-18.0) L Hematocrit 31.3 % (42.0-52.0) L Mean Corpuscular Volume 92 FL (80-99) Mean Corpuscular Hemoglobin 30.8 PG (27.0-31.0) Mean Corpuscular Hemoglobin Concent 33.5 G/DL (32.0-36.0) Red Cell Distribution Width 12.1 % (11.6-14.8) Platelet Count 312 K/UL (150-450) Mean Platelet Volume 6.8 FL (6.5-10.1) Neutrophils (%) (Auto) 72.2 % (45.0-75.0) Lymphocytes (%) (Auto) 21.0 % (20.0-45.0) Monocytes (%) (Auto) 6.3 % (1.0-10.0) Eosinophils (%) (Auto) 0.0 % (0.0-3.0) Basophils (%) (Auto) 0.5 % (0.0-2.0) Sodium Level 139 MMOL/L (136-145) Potassium Level 4.1 MMOL/L (3.5-5.1) Chloride Level 104 MMOL/L (98-107) Carbon Dioxide Level 25 MMOL/L (21-32) Anion Gap 10 mmol/L (5-15) Blood Urea Nitrogen 34 mg/dL (7-18) H Creatinine 2.2 MG/DL (0.55-1.30) H Estimat Glomerular Filtration Rate 37.3 mL/min (>60) Glucose Level 129 MG/DL (74-106) H Uric Acid 7.1 MG/DL (2.6-7.2) Calcium Level 8.5 MG/DL (8.5-10.1) Phosphorus Level 3.9 MG/DL (2.5-4.9) Magnesium Level 1.7 MG/DL (1.8-2.4) L Total Bilirubin 0.4 MG/DL (0.2-1.0) Gamma Glutamyl Transpeptidase 121 U/L (5-85) H Aspartate Amino Transf (AST/SGOT) 173 U/L (15-37) H Alanine Aminotransferase (ALT/SGPT) 267 U/L (12-78) H Alkaline Phosphatase 114 U/L (46-116) Total Protein 6.9 G/DL (6.4-8.2) Albumin 2.5 G/DL (3.4-5.0) L Globulin 4.4 g/dL Albumin/Globulin Ratio 0.6 (1.0-2.7) L Triglycerides Level 263 MG/DL (30-150) H Cholesterol Level 336 MG/DL (< 200) H LDL Cholesterol 255 mg/dL (<100) H HDL Cholesterol 19 MG/DL (40-60) L Cholesterol/HDL Ratio 17.7 (3.3-4.4) H Current Medications Medications (Trade) Dose Ordered Sig/Swetha Route PRN Reason Start Time Stop Time Status Last Admin Dose Admin Acetaminophen (Tylenol) 650 mg Q4H PRN ORAL Mild Pain (Pain Scale 1-3) 03/22/18 07:45 04/21/18 07:44 Allopurinol (Zyloprim) 200 mg DAILY ORAL 03/25/18 09:00 04/24/18 08:59 03/27/18 09:10 Amlodipine Besylate (Norvasc) 5 mg BID ORAL 03/22/18 18:00 04/21/18 08:59 03/27/18 09:11 Aspirin (ASA) 325 mg DAILY ORAL 03/24/18 09:00 04/23/18 08:59 03/27/18 09:10 Azithromycin (Zithromax) 500 mg Q24H ORAL 03/26/18 22:30 04/02/18 22:29 03/26/18 23:23 Ceftriaxone Sodium 1 gm/ Dextrose 110 ml @ 220 mls/hr Q24H IVPB 03/26/18 22:30 04/02/18 22:29 03/26/18 23:23 Clonidine HCl (Catapres Tab) 0.1 mg Q4H PRN ORAL SBP > 165 03/22/18 15:45 04/21/18 07:44 03/27/18 09:10 Dextrose (Dextrose 50%) 25 ml STAT PRN IV Hypoglycemia 03/24/18 18:00 04/23/18 17:59 Dextrose (Dextrose 50%) 50 ml STAT PRN IV Hypoglycemia 03/24/18 18:00 04/23/18 17:59 Docusate Sodium (Colace) 100 mg TID ORAL 03/22/18 13:00 04/21/18 08:59 03/27/18 12:15 Fish Oil (Fish Oil) 1,000 mg BID ORAL 03/26/18 18:00 04/23/18 06:29 03/27/18 09:10 Heparin Sodium (Porcine) (Heparin 5000 units/ml) 5,000 units EVERY 12 HOURS SUBQ 03/22/18 09:00 04/21/18 08:59 03/26/18 22:31 Insulin Aspart (NovoLOG) BEFORE MEALS AND HS SUBQ 03/24/18 21:00 04/23/18 20:59 03/27/18 06:50 Nateglinide (Starlix) 120 mg TIAC ORAL 03/25/18 11:30 04/21/18 16:29 03/27/18 12:15 Ondansetron HCl (Zofran) 4 mg Q6H PRN IVP Nausea & Vomiting 03/22/18 07:45 04/21/18 07:44 Pantoprazole (Protonix) 40 mg DAILY ORAL 03/27/18 09:00 04/26/18 08:59 03/27/18 09:10 Polyethylene Glycol (Miralax) 17 gm HSPRN PRN ORAL Constipation 03/22/18 07:45 04/21/18 07:44 Sodium Chloride 1,000 ml @ 75 mls/hr [id number] IV 03/25/18 09:30 04/21/18 09:29 03/26/18 12:10 Tamsulosin HCl (Flomax) 0.4 mg BID ORAL 03/24/18 13:00 04/21/18 20:59 03/27/18 09:10 Marina Torres M.D. Mar 27, 2018 13:39
--- NOTE | 2018-03-27 14:37 | Pulmonology Progress Note ---
Assessment/Plan Problems: (1) Acute renal failure (ARF) (2) Cardiomyopathy due to hypertension (3) Accelerated hypertension (4) Anorexia (5) Obesity (BMI 30-39.9) (6) Diabetes type 2, uncontrolled Assessment/Plan sliding scale diabetic diet hd prn diabetic diet symptomatic treatment dc planning soon d/w daughter at the bed site extensively Subjective Allergies: Coded Allergies: No Known Allergies (Unverified , 03/22/18) Objective Last 24 Hour Vital Signs Date Time Temp Pulse Resp B/P (MAP) Pulse Ox O2 Delivery O2 Flow Rate FiO2 03/27/18 12:00 97.8 82 20 147/89 (108) 94 97.8 03/27/18 09:11 94 172/99 03/27/18 09:10 172/99 03/27/18 08:20 Room Air 03/27/18 08:00 97.9 94 20 172/99 (123) 97.9 03/27/18 04:00 98.2 76 18 124/86 (99) 97 98.2 03/27/18 00:00 98.0 79 19 129/90 (103) 96 98.0 03/26/18 21:00 Room Air 03/26/18 20:00 97.9 89 20 138/94 (109) 96 97.9 03/26/18 16:36 83 129/83 03/26/18 16:00 96.4 83 18 129/83 (98) 95 96.4 Intake and Output 03/26/18 03/27/18 19:00 07:00 Intake Total 1470 ml 110 ml Balance 1470 ml 110 ml Intake Oral 520 ml IV Total 950 ml 110 ml # Voids 5 # Bowel Movements 1 1 Objective General Appearance: WD/WN HEENT: normocephalic, atraumatic Respiratory/Chest: chest wall non-tender, lungs clear Breasts: no masses Cardiovascular: normal peripheral pulses, normal rate Abdomen: normal bowel sounds, no organomegaly Neurologic/Psychiatric: under ground miner II-XII grossly normal Lymphatic: no neck adenopathy Laboratory Tests 03/27/18 04:50: White Blood Count 11.5H, Red Blood Count 3.41L, Hemoglobin 10.5L, Hematocrit 31.3L, Mean Corpuscular Volume 92, Mean Corpuscular Hemoglobin 30.8, Mean Corpuscular Hemoglobin Concent 33.5, Red Cell Distribution Width 12.1, Platelet Count 312, Mean Platelet Volume 6.8, Neutrophils (%) (Auto) 72.2, Lymphocytes (% ) (Auto) 21.0, Monocytes (%) (Auto) 6.3, Eosinophils (%) (Auto) 0.0, Basophils ( %) (Auto) 0.5, Sodium Level 139, Potassium Level 4.1, Chloride Level 104, Carbon Dioxide Level 25, Anion Gap 10, Blood Urea Nitrogen 34H, Creatinine 2.2H , Estimat Glomerular Filtration Rate 37.3, Glucose Level 129H, Uric Acid 7.1, Calcium Level 8.5, Phosphorus Level 3.9, Magnesium Level 1.7L, Total Bilirubin 0.4, Gamma Glutamyl Transpeptidase 121H, Aspartate Amino Transf (AST/SGOT) 173H , Alanine Aminotransferase (ALT/SGPT) 267H, Alkaline Phosphatase 114, Total Protein 6.9, Albumin 2.5L, Globulin 4.4, Albumin/Globulin Ratio 0.6L, Triglycerides Level 263H, Cholesterol Level 336H, LDL Cholesterol 255H, HDL Cholesterol 19L, Cholesterol/HDL Ratio 17.7H Current Medications Medications (Trade) Dose Ordered Sig/Swetha Route PRN Reason Start Time Stop Time Status Last Admin Dose Admin Acetaminophen (Tylenol) 650 mg Q4H PRN ORAL Mild Pain (Pain Scale 1-3) 03/22/18 07:45 04/21/18 07:44 Allopurinol (Zyloprim) 200 mg DAILY ORAL 03/25/18 09:00 04/24/18 08:59 03/27/18 09:10 Amlodipine Besylate (Norvasc) 5 mg BID ORAL 03/22/18 18:00 04/21/18 08:59 03/27/18 09:11 Aspirin (ASA) 325 mg DAILY ORAL 03/24/18 09:00 04/23/18 08:59 03/27/18 09:10 Azithromycin (Zithromax) 500 mg Q24H ORAL 03/26/18 22:30 04/02/18 22:29 03/26/18 23:23 Ceftriaxone Sodium 1 gm/ Dextrose 110 ml @ 220 mls/hr Q24H IVPB 03/26/18 22:30 04/02/18 22:29 03/26/18 23:23 Clonidine HCl (Catapres Tab) 0.1 mg Q4H PRN ORAL SBP > 165 03/22/18 15:45 04/21/18 07:44 03/27/18 09:10 Dextrose (Dextrose 50%) 25 ml STAT PRN IV Hypoglycemia 03/24/18 18:00 04/23/18 17:59 Dextrose (Dextrose 50%) 50 ml STAT PRN IV Hypoglycemia 03/24/18 18:00 04/23/18 17:59 Docusate Sodium (Colace) 100 mg TID ORAL 03/22/18 13:00 04/21/18 08:59 03/27/18 12:15 Fish Oil (Fish Oil) 1,000 mg BID ORAL 03/26/18 18:00 04/23/18 06:29 03/27/18 09:10 Heparin Sodium (Porcine) (Heparin 5000 units/ml) 5,000 units EVERY 12 HOURS SUBQ 03/22/18 09:00 04/21/18 08:59 03/26/18 22:31 Insulin Aspart (NovoLOG) BEFORE MEALS AND HS SUBQ 03/24/18 21:00 04/23/18 20:59 03/27/18 06:50 Nateglinide (Starlix) 120 mg TIAC ORAL 03/25/18 11:30 04/21/18 16:29 03/27/18 12:15 Ondansetron HCl (Zofran) 4 mg Q6H PRN IVP Nausea & Vomiting 03/22/18 07:45 04/21/18 07:44 Pantoprazole (Protonix) 40 mg DAILY ORAL 03/27/18 09:00 04/26/18 08:59 03/27/18 09:10 Polyethylene Glycol (Miralax) 17 gm HSPRN PRN ORAL Constipation 03/22/18 07:45 04/21/18 07:44 Sodium Chloride 1,000 ml @ 75 mls/hr [id number] IV 03/25/18 09:30 04/21/18 09:29 03/26/18 12:10 Tamsulosin HCl (Flomax) 0.4 mg BID ORAL 03/24/18 13:00 04/21/18 20:59 03/27/18 09:10 Ethan Barnett MD Mar 27, 2018 14:37
[2018-03-27] MEDS ORDERED: NORVASC10 MG ORAL (15:07)
[2018-03-27] MEDS ORDERED: TAMSULOSIN HCL0.4 MG ORAL (15:08)
[2018-03-27] MEDS ORDERED: STARLIX120 MG ORAL (15:08)
[2018-03-27] MEDS ORDERED: LEVAQUIN750 MG ORAL (15:10)
[2018-03-27] MEDS ORDERED: Tubing IV Secondary IV ONE (15:29)
--- NOTE | 2018-03-29 10:00 | Cardiology Report ---
APPROVED REPORT EXAM: Two-dimensional and M-mode echocardiogram with Doppler and color Doppler. M-Mode DIMENSIONS IVSd1.8 (0.7-1.1cm)Left Atrium (MM)5.6 (1.6-4.0cm) LVDd4.7 (3.5-5.6cm)Aortic Root3.7 (2.0-3.7cm) PWd1.3 (0.7-1.1cm)Aortic Cusp Exc.1.8 (1.5-2.0cm) IVSs2.0 cm LVDs3.0 (2.5-4.0cm) PWs1.3 cm Normal left ventricular chamber size, systolic function and wall motion to extent visualized. Left ventricular ejection fraction estimated to be 55-60 %. Mild left ventricular hypertrophy by 2-D. No evidence of pericardial effusion. All other cardiac chamber sizes are within normal limits. Focal aortic valve sclerosis with adequate cusp excursion. Thickened mitral valve leaflets with normal excursion. Mitral annulus and aortic root calcification. Pulmonic valve not well visualized. Normal tricuspid valve structure. IVC at normal size with physiologic collapse . A color flow and spectral Doppler study was performed and revealed: No aortic regurgitation. Mild mitral regurgitation. Normal Left ventricular diastolic function . Mild tricuspid regurgitation. Tricuspid systolic velocities suggests peak right ventricular systolic pressure of 18 mmHg. No Pulmonic regurgitation present.
--- NOTE | 2018-03-30 07:19 | Discharge Summary ---
Discharge Summary Discharge Summary _ DATE OF ADMISSION: 03/22/2018 DATE OF DISCHARGE: 03/27/2018 REASON FOR ADMISSION: 57 years old male with past medical history significant for hypertension , hyperlipidemia and obesity ,was transferred from [facility] to [facility] for insurance purposes. Patient initially came to [place] emergency department complaining of fatigue and anorexia and found to be in acute renal failure. Upon evaluation in the [facility], blood pressure was elevated. WBC 16.5, BUN 43, creatinine 5.3. Sodium 129, potassium 2.9, chloride 92, CO2 23. AST 118 AlT 144. [id number] glucose. Uric acid 11.8. Urine toxicology screen was negative. Patient admitted with diagnoses of acute renal failure , hypercholesterolemia hypertension out of control CONSULTANTS: belt machine operator dr. Singer neurologist pulmonary Dr. Barnett ID specialist Dr. Muhammad GI specialist private chef Dr. Zaragoza front desk coordinator/oncologist surgery psychiatrist HOSPITAL COURSE: Patient admitted. Nephrology ,cardiology and ID consults were requested. Patient started on hydration with IV fluids. Blood pressure was managed with calcium channel mikhail and clonidine on as needed basis. Renal ultrasound revealed no hydronephrosis, normal bilateral kidneys echogenicity. Renal parameters and electrolytes were closely monitored, nephrotoxins were avoided, and electrolytes corrected as needed. Patient agreed with dialysis. Patient undergone subsequently insertion of non-tunneled hemodialysis catheter via right internal jugular on 03/23 by interventional radiology. Patient started on hemodialysis, and had hemodialysis done on 03/23 and 03/25. Urine studies were completed. Glucose l was elevated , hemoglobin A1c 7.4. The patient diagnosed with diabetes and started on anti-glycemic regimen with Starlix and sliding scale of insulin as needed. LFT were trending . Hepatitis panel pending. Abdominal ultrasound showed evidence of probable fatty liver and no gallstones. For elevated uric acid, patient was started on allopurinol. Uric acid trending down. Prior to discharge 7. Infectious disease doctors closely followed. Initially patient kept off antibiotics. Urinalysis revealed no evidence of pyuria. Patient was afebrile However CXR later revealed evidence of possible left lower lobe consolidation, and patient started on antibiotic for probable pneumonia. Patient was on the IV antibiotic and switched to oral upon discharge to complete the course. Leucocytosis trending down . Manager [employer] closely followed. Echocardiogram revealed evidence of hypertensive heart disease with preserved ejection fraction. Lipid panel revealed mixed hyperlipidemia with elevated triglycerides 263 , elevated total cholesterol 336, and elevated LDL 255 , Patient initially started on statin and fish oil, however due to elevated LFT , statin was discontinued. c Fish oil was continued . Patient was educated on on low-fat renal diabetic diet. Repeat lipid panel in 6 weeks. Manager [employer] recommended outpatient ischemia evaluation due to multiple cardiac risk factors Prior to discharge WBC down to 11.5 ,patient afebrile. BUN down to 34 creatinine down to 2.2, electrolytes stable. Paper Stripper cleared patient for discharge. No need for further hemodialysis FINAL DIAGNOSES: Acute renal failure, requiring initiation of hemodialysis- resolved Electrolyte imbalances-corrected Leukocytosis Probable pneumonia Transaminitis Accelerated hypertension Hyperlipidemia mixed OB CT Diabetes mellitus( newly diagnosed), out of control Elevated uric acid DISCHARGE MEDICATIONS: See Medication Reconciliation list. DISCHARGE INSTRUCTIONS: Patient was discharged home. Follow up with primary care provider in one week for close monitoring of renal parameters, and keeping blood pressure and blood sugar under control.. I have been assigned to dictate discharge summary for this account. I was not involved in the patient's management. Nicole Clark NP Mar 30, 2018 07:19
--- NOTE | 2018-04-02 12:31 | Cardiology Report ---
APPROVED REPORT EKG Measurement Heart [id number] Normal sinus rhythm Incomplete right bundle branch block Minimal voltage criteria for LVH, may be normal variant Borderline ECG
== END 2018-03-27 15:30 | disposition home or self-care (01) | DRG 682 ==
LOC: EDSEX 03-22 02:19 → 4W 03-22 02:19
PROC: 5A1D70Z Performance of Urinary Filtration, Intermittent, Less than 6 Hours Per Day (ICD-10-PCS; principal; 2018-03-23)
PROC: 05HM33Z Insertion of Infusion Device into Right Internal Jugular Vein, Percutaneous Approach (ICD-10-PCS; principal; 2018-03-23)
PROC: 5A1D70Z Performance of Urinary Filtration, Intermittent, Less than 6 Hours Per Day (ICD-10-PCS; 2018-03-25)
DX: N17.9 Acute kidney failure, unspecified (principal); J18.9 Pneumonia, unspecified organism; E78.00 Pure hypercholesterolemia, unspecified; E66.9 Obesity, unspecified; E11.65 Type 2 diabetes mellitus with hyperglycemia; E78.2 Mixed hyperlipidemia; I11.9 Hypertensive heart disease without heart failure; E87.8 Other disorders of electrolyte and fluid balance, not elsewhere classified; R74.0 Nonspecific elevation of levels of transaminase and lactic acid dehydrogenase [LDH]
CPT/HCPCS: 36415; 36569; 71045; 76700; 76770; 76937; 80048; 80053; 80061; 80307; 81003; 82550; 82607; 82728; 82746; 82962; 82977; 83036; 83540; 83550; 83735; 83880; 84100; 84300; 84443; 84550; 85025; 85610; 85730; 86140; 86706; 86707; 86803; 87086; 87181; 87324; 89050; 93005; 93306; J1815; J8499